=== PATIENT | female | born 1935 | race Caucasian/White ===

== ENCOUNTER 2017-08-12 11:00 | Outpatient (RCR) | payer MEDICARE, OTHER | END 2017-11-10 | disposition home or self-care (01) | LOC: ONC 11:00 | PROVIDERS: ATTEND Internal Medicine Hematology & Oncology | DX: Z08 Encounter for follow-up examination after completed treatment for malignant neoplasm (principal); Z85.3 Personal history of malignant neoplasm of breast; M81.0 Age-related osteoporosis without current pathological fracture; E03.9 Hypothyroidism, unspecified; M25.511 Pain in right shoulder; R13.10 Dysphagia, unspecified; Z92.3 Personal history of irradiation; Z79.899 Other long term (current) drug therapy | CPT/HCPCS: 99213 ==

== ENCOUNTER 2018-08-18 09:47 | Outpatient (RCR) | payer MEDICARE, OTHER | END 2018-11-16 | disposition home or self-care (01) | LOC: ONC 09:47 | PROVIDERS: ATTEND Internal Medicine Hematology & Oncology | DX: Z08 Encounter for follow-up examination after completed treatment for malignant neoplasm (principal); Z85.3 Personal history of malignant neoplasm of breast; M81.0 Age-related osteoporosis without current pathological fracture; E03.9 Hypothyroidism, unspecified; M25.511 Pain in right shoulder; R13.10 Dysphagia, unspecified; Z92.3 Personal history of irradiation; Z79.899 Other long term (current) drug therapy | CPT/HCPCS: 99213 ==

== ENCOUNTER → 2019-03-05 | Outpatient (CLI) | payer MEDICARE, OTHER ==
--- NOTE | 2019-03-05 17:52 | Diagnostic Imaging Report ---
EXAMINATION: Right knee, three views. INDICATION: Right knee pain and swelling. No known injury. COMPARISON: None available. FINDINGS: There is mild osteopenia of the visualized bones, more prominent in the tibia and fibula. There is suggestion of linear lucency through the lateral tibial plateau, which is best seen on the oblique view. Otherwise, no fracture or acute osseous abnormality is appreciated. Bony alignment is maintained. Tricompartmental degenerative change is noted, with joint space narrowing in the medial and lateral compartments, and marginal osteophyte formation in the patellofemoral, medial, and lateral compartments. No large joint effusion. Soft tissues are unremarkable. IMPRESSION: Suggestion of lucency involving the lateral tibial plateau, possibly reflecting fracture. This can be confirmed with CT scan, as clinically indicated. Left message with office to have nurse call (4:13 p.m. 03/05/2019/myriam) Dictated by: Dictated on workstation # [id number]
== END ==
LOC: RAD FS 15:03
PROVIDERS: ATTEND Family Medicine
DX: M25.461 Effusion, right knee (principal); M25.361 Other instability, right knee
CPT/HCPCS: 73562

== ENCOUNTER → 2019-03-10 | Outpatient (CLI) | payer MEDICARE, OTHER ==
--- NOTE | 2019-03-12 17:20 | Diagnostic Imaging Report ---
PROCEDURE: CT right lower extremity without contrast. TECHNIQUE: Axially acquired CT was obtained through the right lower extremity without intravenous contrast. Coronal and sagittal reformations were also performed. Auto Exposure Controls were utilized during the CT exam to meet ALARA standards for radiation dose reduction. INDICATION: Knee pain. Knee started giving out about 2 weeks ago. No prior surgeries. EXAMINATION: CT of the right lower extremity from 03/10/2019. COMPARISON: Correlation made to radiographs dated 03/05/2019. FINDINGS: There is a moderate sized joint effusion. There is also fluid in the posterior medial aspect of the knee likely due to a recent rupture of a Villa's cyst. There is osteopenia which does limit evaluation for nondisplaced fractures. Subchondral cysts are noted throughout the medial tibial plateau and more centrally along the tibia near the tibial eminences. These findings are consistent with degenerative disease. Spurring noted medially and laterally. No discrete fractures are appreciated but if pain persists, MRI recommended given the diffuse osteopenia. IMPRESSION: 1. Marked osteopenia. No discrete fracture lines appreciated but please see above discussion and recommendations. 2. Degenerative changes. 3. Joint effusion. Dictated by: Dictated on workstation # [id number]
== END ==
LOC: RAD FS 10:11
PROVIDERS: ATTEND Family Medicine
DX: M17.11 Unilateral primary osteoarthritis, right knee (principal); M85.88 Other specified disorders of bone density and structure, other site; M85.661 Other cyst of bone, right lower leg
CPT/HCPCS: 73700

== ENCOUNTER → 2019-08-17 | Outpatient (CLI) | payer MEDICARE, OTHER ==
[2019-08-17 10:22] LABS: BASOPHILS % (AUTO) 1 % (0-10); EOSINOPHILS # (AUTO) 0.1 10^3/uL (0.0-0.3); EOSINOPHILS % (AUTO) 1 % (0-10); HEMATOCRIT 44 % (35-52); HEMOGLOBIN 14.2 G/DL (11.5-16.0); LYMPHOCYTES # (AUTO) 1.3 X 10^3 (1.0-4.0); LYMPHOCYTES % (AUTO) 21 % (12-44); MEAN CORPUSCULAR HEMOGLOBIN 32 PG (25-34); MEAN CORPUSCULAR HGB CONC 33 G/DL (32-36); MEAN CORPUSCULAR VOLUME 98 FL (80-99); MEAN PLATELET VOLUME 10.3 FL (7.4-10.4); MONOCYTES # (AUTO) 0.4 X 10^3 (0.0-1.0); MONOCYTES % (AUTO) 6 % (0-12); NEUTROPHILS # (AUTO) 4.3 X 10^3 (1.8-7.8); NEUTROPHILS % (AUTO) 71 % (42-75); PLATELET COUNT 204 10^3/uL (130-400); RED CELL DISTRIBUTION WIDTH 12.7 % (10.0-14.5); WHITE BLOOD COUNT 6.1 10^3/uL (4.3-11.0)
[2019-08-17 10:40] LABS: ALANINE AMINOTRANSFERASE 11 U/L (0-55); ALBUMIN 4.1 GM/DL (3.2-4.5); ALKALINE PHOSPHATASE 61 U/L (40-136); BILIRUBIN,TOTAL 0.5 MG/DL (0.1-1.0); BUN/CREATININE RATIO 16; CARBON DIOXIDE 27 MMOL/L (21-32); CHLORIDE 105 MMOL/L (98-107); CREATININE SERUM 0.81 MG/DL (0.60-1.30); GFR ESTIMATED > 60; GLUCOSE 91 MG/DL (70-105); POTASSIUM 3.9 MMOL/L (3.6-5.0); SODIUM 138 MMOL/L (135-145); TOTAL PROTEIN 6.5 GM/DL (6.4-8.2)
== END ==
LOC: EDSTATUS 11-17 08:16 → ONC 10:12
PROVIDERS: ATTEND Internal Medicine Hematology & Oncology
DX: C50.912 Malignant neoplasm of unspecified site of left female breast (principal); M47.816 Spondylosis without myelopathy or radiculopathy, lumbar region; Z79.899 Other long term (current) drug therapy
CPT/HCPCS: 36415; 80053; 85025; 99213

== ENCOUNTER → 2020-04-07 | Outpatient (CLI) | payer MEDICARE, OTHER ==
[~2020-04-07] MED LIST: ALEN70TA5; CELE-63; CENTRUM; CETI10TA17; LEVO-129; LEVO50TA6; LOVA20TA2
--- NOTE | 2020-04-07 14:44 | Diagnostic Imaging Report ---
INDICATION: Low abdominal pain. EXAMINATION: Supine and upright views of the abdomen were obtained with single view of the chest. FINDINGS: There is air trapping in the lungs, bilaterally. There is no evidence of focal consolidation. Surgical clips are seen in the left axilla. Overall bowel gas pattern is unremarkable. There is no evidence of bowel obstruction. No free intraperitoneal gas or pneumatosis is identified. There has been bilateral hip replacement. Moderate lumbar spondylosis is noted. IMPRESSION: No acute abnormality. Dictated by: Dictated on workstation # [id number]
== END ==
LOC: RAD FS 14:22
PROVIDERS: ATTEND Family Medicine
DX: R10.84 Generalized abdominal pain (principal)
CPT/HCPCS: 74022

== ENCOUNTER 2020-04-09 11:15 | Emergency (ER) | payer MEDICARE, OTHER ==
[~2020-04-09] VITALS: Ht 170.1 cm; Wt 60.8 kg
--- NOTE | 2020-04-09 11:23 | NUR ---
Pt presents to ED accompanied by best friend with referral from [facility]. Friend with patient reports had been to the [facility] and they reported she will need labs and scanning that can not be performed there.
--- NOTE | 2020-04-09 11:37 | ED Abdominal Pain ---
General Chief Complaint: Abdominal/GI Problems Stated Complaint: ABD PAIN Source of Information: Patient Exam Limitations: No Limitations History of Present Illness Date Seen by Provider: Apr 09, 2020 Time Seen by Provider: 11:20 Initial Comments The patient is a pleasant 84-year-old female who presents for evaluation of lower middle abdominal discomfort she states is been present for the last 2 days. She denies that the pain is currently severe but says she knows that it is there. She was seen by her PCP 2 days ago and had a KUB performed which apparently suggested some constipation because she was prescribed MiraLAX. The patient states that she does not have a good memory and does not recall if she has been taking the MiraLAX. She denies any history of abdominal surgeries. She also denies fevers or chills, nausea or vomiting, diarrhea, urinary complaints, vaginal bleeding, chest pain or shortness of breath, dizziness or syncope. She is alert and oriented 4, calm, and appears to be in no distress at this time. Timing/Duration: 2-3 Days Severity/Quality: Moderate Location: Suprapubic Radiation: No Radiation Activities at Onset: None Associated Symptoms: Denies Symptoms Allergies and Home Medications Allergies Coded Allergies: Penicillins (Unverified Adverse Reaction, Unknown, 04/09/20) Sulfa (Sulfonamide Antibiotics) (Unverified Adverse Reaction, Unknown, 04/09/20) Patient Home Medication List Home Medication List Reviewed: Yes Review of Systems Review of Systems Constitutional: no symptoms reported EENTM: No Symptoms Reported Respiratory: No Symptoms Reported Cardiovascular: No Symptoms Reported Gastrointestinal: Abdominal Pain Genitourinary: No Symptoms Reported Musculoskeletal: no symptoms reported Skin: no symptoms reported Psychiatric/Neurological: No Symptoms Reported Endocrine: No Symptoms Reported Hematologic/Lymphatic: No Symptoms Reported All Other Systems Reviewed Negative Unless Noted: Yes Past Qxpsmuc-Nghhds-Okiepn Hx Past Med/Social Hx: Reviewed Nursing Past Med/Soc Hx Physical Exam Vital Signs Vital Signs - First Documented 04/09/20 11:23 Temp 36.3 Pulse 81 Resp 18 B/P (MAP) 157/79 (105) Pulse Ox 99 O2 Delivery Room Air Capillary Refill : Height/Weight/BMI Height: '" Weight: lbs. oz. kg; BMI Method: General Appearance: WD/WN, no apparent distress HEENT: PERRL/EOMI, normal ENT inspection Respiratory: lungs clear, normal breath sounds, no respiratory distress, no accessory muscle use Cardiovascular: regular rate, rhythm, no edema, no JVD Gastrointestinal: normal bowel sounds, soft, no organomegaly, no pulsatile mass, tenderness (mild suprapubic abdominal tenderness, otherwise benign abdominal examination, no guarding, soft, no rebound, no rigidity, no distention) Extremities: non-tender, normal inspection, no pedal edema, no calf tenderness Back: normal inspection, no CVA tenderness 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, no motor/sensory deficits, alert, normal mood/affect, oriented x 3 Skin: normal color, warm/dry Progress/Results/Core Measures Results/Orders Lab Results Laboratory Tests Test 04/09/20 11:29 04/09/20 11:35 Range/Units Urine Color PALE YELLOW Urine Clarity CLEAR Urine pH 6.0 5-9 Urine Specific Sullivan <=1.005 1.016-1.022 Urine Protein NEGATIVE NEGATIVE Urine Glucose (UA) NEGATIVE NEGATIVE Urine Ketones NEGATIVE NEGATIVE Urine Nitrite NEGATIVE NEGATIVE Urine Bilirubin NEGATIVE NEGATIVE Urine Urobilinogen 0.2 < = 1.0 MG/DL Urine Leukocyte Esterase NEGATIVE NEGATIVE Urine RBC (Auto) NEGATIVE NEGATIVE Urine RBC NONE /HPF Urine WBC RARE /HPF Urine Squamous Epithelial Cells 0-2 /HPF Urine Crystals NONE /LPF Urine Bacteria NEGATIVE /HPF Urine Casts NONE /LPF Urine Mucus NEGATIVE /LPF Urine Culture Indicated NO White Blood Count 9.0 4.3-11.0 10^3/uL Red Blood Count 4.36 4.35-5.85 10^6/uL Hemoglobin 14.1 11.5-16.0 G/DL Hematocrit 42 35-52 % Mean Corpuscular Volume 97 80-99 FL Mean Corpuscular Hemoglobin 32 25-34 PG Mean Corpuscular Hemoglobin Concent 33 32-36 G/DL Red Cell Distribution Width 11.8 10.0-14.5 % Platelet Count 216 130-400 10^3/uL Mean Platelet Volume 10.5 H 7.4-10.4 FL Neutrophils (%) (Auto) 74 42-75 % Lymphocytes (%) (Auto) 19 12-44 % Monocytes (%) (Auto) 5 0-12 % Eosinophils (%) (Auto) 1 0-10 % Basophils (%) (Auto) 1 0-10 % Neutrophils # (Auto) 6.7 1.8-7.8 X 10^3 Lymphocytes # (Auto) 1.7 1.0-4.0 X 10^3 Monocytes # (Auto) 0.5 0.0-1.0 X 10^3 Eosinophils # (Auto) 0.1 0.0-0.3 10^3/uL Basophils # (Auto) 0.1 0.0-0.1 10^3/uL Sodium Level 139 135-145 MMOL/L Potassium Level 4.4 3.6-5.0 MMOL/L Chloride Level 101 98-107 MMOL/L Carbon Dioxide Level 25 21-32 MMOL/L Anion Gap 13 5-14 MMOL/L Blood Urea Nitrogen 15 7-18 MG/DL Creatinine 0.81 0.60-1.30 MG/DL Estimat Glomerular Filtration Rate > 60 BUN/Creatinine Ratio 19 Glucose Level 101 70-105 MG/DL Calcium Level 9.5 8.5-10.1 MG/DL Corrected Calcium 9.4 8.5-10.1 MG/DL Total Bilirubin 0.5 0.1-1.0 MG/DL Aspartate Amino Transf (AST/SGOT) 27 5-34 U/L Alanine Aminotransferase (ALT/SGPT) 11 0-55 U/L Alkaline Phosphatase 73 40-136 U/L Total Protein 6.4 6.4-8.2 GM/DL Albumin 4.1 3.2-4.5 GM/DL Amylase Level 34 25-125 U/L Lipase 26 8-78 U/L My Orders Orders - EDWARD SWEENEY DO Amylase (04/09/20 11:19) Cbc With Automated Diff (04/09/20 11:19) Comprehensive Metabolic Panel (04/09/20 11:19) Lipase (04/09/20 11:19) Ua Culture If Indicated (04/09/20 11:19) Ed Iv/Invasive Line Start (04/09/20 11:19) Ct Abdomen/Pelvis W (04/09/20 11:32) Iohexol Injection (Omnipaque 350 Mg/Ml 1 (04/09/20 12:30) Received Contrast (Hold Metformin- Contr (04/09/20 12:30) Ns (Ivpb) (Sodium Chloride 0.9% Ivpb Bag (04/09/20 12:30) Sodium Chloride Flush (Catheter Flush Sy (04/09/20 12:30) Medications Given in ED Current Medications Medications Dose Ordered Sig/Tello Route Start Time Stop Time Status Last Admin Dose Admin Iohexol 100 ml ONCE ONCE IV 04/09/20 12:30 04/09/20 12:31 DC 04/09/20 12:31 100 ML Sodium Chloride 10 ml NEEDED PRN IV 04/09/20 12:30 04/09/20 12:31 10 ML Sodium Chloride 100 ml ONCE ONCE IV 04/09/20 12:30 04/09/20 12:31 DC 04/09/20 12:31 80 ML Vital Signs/I&O 04/09/20 11:23 Temp 36.3 Pulse 81 Resp 18 B/P (MAP) 157/79 (105) Pulse Ox 99 O2 Delivery Room Air Progress Progress Note : Progress Note @1325 - patient updated on lab and imaging results which are acutely unremarkable. She appears comfortable. Advised the patient to stop taking the MiraLAX as she is having somewhat loose stools and to follow-up with her doctor in the next 1-2 days. The patient expresses verbal understanding and agreement with the plan and is stable for discharge. Diagnostic Imaging Diagonstic Imaging: CT Comments [facility]. [place], [place] NAME: MIRI GROVES MED REC#: [id number] PT STATUS: REG ER : 1935 PHYSICIAN: EDWARD SWEENEY DO ADMIT DATE: 04/09/20/ER FS Signed Date of Exam:04/09/20 CT ABDOMEN/PELVIS W PROCEDURE: CT abdomen and pelvis with contrast. TECHNIQUE: Multiple contiguous axial images were obtained through the abdomen and pelvis after administration of intravenous contrast. Auto Exposure Controls were utilized during the CT exam to meet ALARA standards for radiation dose reduction. INDICATION: Abdominal pain for several days. Constipation. There is hepatic steatosis. There is a 3.5 cm cyst in the left lobe of the liver. The gallbladder and bile ducts are normal. The spleen, pancreas and adrenals are normal. The kidneys and ureters are normal. The bladder is predominantly obscured by artifact from the bilateral hip prostheses that are present. There is fecal material scattered throughout a nondilated colon. No acute abnormality of the colon is seen. The appendix is normal. The small bowel is normal. There is no free intraperitoneal air or fluid. There are degenerative changes of the spine with no acute bony abnormality. IMPRESSION: Hepatic steatosis. No acute abnormality is seen. Dictated by: Dictated on workstation # [id number] Dict: 04/09/20 1250 Trans: 04/09/20 1303 [facility] [id number] Interpreted by: EDWARD WYATT MD Electronically signed by: EDWARD WYATT MD 04/09/20 1302 Departure Impression Primary Impression: Abdominal pain Disposition: 01 HOME, SELF-CARE Condition: Stable Departure-Patient Inst. Decision time for Depature: 13:26 Referrals: SELFANGEL MD (PCP/Family) Primary Care Physician Patient Instructions: Acute Abdomen (Belly Pain), Adult (DC) Add. Discharge Instructions: Follow-up with your doctor in the next 1-2 days. Return to the emergency Department immediately for new or worsening symptoms. Stop taking the MiraLAX while having loose or soft stools as this may be contributing to your abdominal cramping discomfort. EDWARD SWEENEY DO Apr 09, 2020 11:37
--- NOTE | 2020-04-09 11:40 | NUR ---
Call to [facility] to request a report of the presentation of patient at their facility and any exam results. Provider reports they can not perform any further exams in their facility as no results today such as labs and concern for abd CT scanning. At this time the quality control director states that Dr Sullivan saw patient 04/07/20 and did KUB. The visit recommended pt to use Miralax and drink Gatorade also.
[2020-04-09 11:52] LABS: BACTERIA,URINE NEGATIVE /HPF; BILIRUBIN,URINE NEGATIVE (NEGATIVE); CLARITY,URINE CLEAR; COLOR,URINE PALE YELLOW; GLUCOSE, URINE (UA) NEGATIVE (NEGATIVE); KETONES,URINE NEGATIVE (NEGATIVE); LEUKOCYTE ESTERASE ,URINE NEGATIVE (NEGATIVE); NITRITE,URINE NEGATIVE (NEGATIVE); PROTEIN,URINE NEGATIVE (NEGATIVE); SQUAMOUS EPITHELIAL CELL,UR 0-2 /HPF; WBC,URINE RARE /HPF
[2020-04-09 11:57] LABS: HEMATOCRIT 42 % (35-52); HEMOGLOBIN 14.1 G/DL (11.5-16.0); MEAN CORPUSCULAR HEMOGLOBIN 32 PG (25-34); MEAN CORPUSCULAR HGB CONC 33 G/DL (32-36); MEAN CORPUSCULAR VOLUME 97 FL (80-99); PLATELET COUNT 216 10^3/uL (130-400); RED CELL DISTRIBUTION WIDTH 11.8 % (10.0-14.5)
[2020-04-09 11:58] LABS: BASOPHILS # (AUTO) 0.1 10^3/uL (0.0-0.1); BASOPHILS % (AUTO) 1 % (0-10); EOSINOPHILS # (AUTO) 0.1 10^3/uL (0.0-0.3); EOSINOPHILS % (AUTO) 1 % (0-10); LYMPHOCYTES # (AUTO) 1.7 X 10^3 (1.0-4.0); LYMPHOCYTES % (AUTO) 19 % (12-44); MEAN PLATELET VOLUME 10.5 FL (7.4-10.4); MONOCYTES # (AUTO) 0.5 X 10^3 (0.0-1.0); MONOCYTES % (AUTO) 5 % (0-12); NEUTROPHILS # (AUTO) 6.7 X 10^3 (1.8-7.8); NEUTROPHILS % (AUTO) 74 % (42-75)
[2020-04-09] MEDS ORDERED: CENTRUM (12:05)
[2020-04-09] MEDS ORDERED: LEVO-129 (12:05)
[2020-04-09] MEDS ORDERED: LOVA20TA2 (12:05)
[2020-04-09] MEDS ORDERED: CELE-63 (12:05)
[2020-04-09] MEDS ORDERED: ALEN70TA5 (12:05)
[2020-04-09] MEDS ORDERED: CETI10TA17 (12:05)
[2020-04-09] MEDS ORDERED: LEVO50TA6 (12:05)
[2020-04-09 12:13] LABS: BUN/CREATININE RATIO 19; CALCIUM 9.5 MG/DL (8.5-10.1); CARBON DIOXIDE 25 MMOL/L (21-32); CHLORIDE 101 MMOL/L (98-107); CREATININE SERUM 0.81 MG/DL (0.60-1.30); GFR ESTIMATED > 60; GLUCOSE 101 MG/DL (70-105); SODIUM 139 MMOL/L (135-145)
[2020-04-09 12:14] LABS: ALANINE AMINOTRANSFERASE 11 U/L (0-55); ALBUMIN 4.1 GM/DL (3.2-4.5); ALKALINE PHOSPHATASE 73 U/L (40-136); AMYLASE 34 U/L (25-125); BILIRUBIN,TOTAL 0.5 MG/DL (0.1-1.0); LIPASE 26 U/L (8-78); TOTAL PROTEIN 6.4 GM/DL (6.4-8.2)
[2020-04-09 12:15] LABS: POTASSIUM 4.4 MMOL/L (3.6-5.0)
[2020-04-09 12:30] VITALS: BP 147/66
[2020-04-09] MEDS ORDERED: CATHETER FLUSH 10 ML SYR IV PRN (12:30)
[2020-04-09] MEDS ORDERED: NS 100 ML (IVPB) BAG IV ONE (12:30)
[2020-04-09] MEDS ORDERED: IOHEXOL 350 MG/ML 100 ML (OMNIPAQUE 350) VIAL IV ONE (12:30)
[2020-04-09] MEDS ORDERED: HOLD METFORMIN - RECEIVED CONTRAST 20 ML VIAL IV SCH (12:30)
--- NOTE | 2020-04-09 12:55 | Diagnostic Imaging Report ---
PROCEDURE: CT abdomen and pelvis with contrast. TECHNIQUE: Multiple contiguous axial images were obtained through the abdomen and pelvis after administration of intravenous contrast. Auto Exposure Controls were utilized during the CT exam to meet ALARA standards for radiation dose reduction. INDICATION: Abdominal pain for several days. Constipation. There is hepatic steatosis. There is a 3.5 cm cyst in the left lobe of the liver. The gallbladder and bile ducts are normal. The spleen, pancreas and adrenals are normal. The kidneys and ureters are normal. The bladder is predominantly obscured by artifact from the bilateral hip prostheses that are present. There is fecal material scattered throughout a nondilated colon. No acute abnormality of the colon is seen. The appendix is normal. The small bowel is normal. There is no free intraperitoneal air or fluid. There are degenerative changes of the spine with no acute bony abnormality. IMPRESSION: Hepatic steatosis. No acute abnormality is seen. Dictated by: Dictated on workstation # [id number]
[2020-04-09 13:35] VITALS: BP 133/90
--- NOTE | 2020-04-09 13:35 | NUR ---
Pt discharged at this time after review of home instructions and verbalizing understanding. Pt has a friend Jane Vidhya Yin that also was a patient that sat to listen review of instructions r/t pt's poor comprehension r/t early dementia. All questions satified with answers. IV dc'd with small pressure dsg placed over site, hemostasis achieved. Pt ambulates with steady gait.
== END 2020-04-09 13:35 | disposition home or self-care (01) ==
LOC: EDUNIT# 11:15 → ER FS 11:17
DX: R10.30 Lower abdominal pain, unspecified (principal); Z88.2 Allergy status to sulfonamides; K76.0 Fatty (change of) liver, not elsewhere classified; Z79.890 Hormone replacement therapy; Z79.899 Other long term (current) drug therapy; Z88.0 Allergy status to penicillin; Z96.643 Presence of artificial hip joint, bilateral
CPT/HCPCS: 36415; 74177; 80053; 81000; 82150; 83690; 85025

== ENCOUNTER 2020-04-15 14:31 | Emergency (ER) | payer MEDICARE, OTHER ==
[~2020-04-15] VITALS: Ht 170.2 cm; Wt 60.8 kg
--- OUTSIDE RECORDS SUMMARY | 2020-04-15 14:37 | XMS REPORT ---
Author Author Rocio Petit Organization [facility] Address [address] [facility]. 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 595790362 Problem BCC (basal cell carcinoma), back C44.519 Active 066814062 Problem Solar urticaria L56.3 Active 1038 8136 ALLERGIES No Information ENCOUNTERS Encounter Location Date Diagnosis [facility] [id number] [place] [address] [phone] Jun, [facility] [address] [place] [address] [phone] Jan, Encounter for removal of sut ures Z48.02 [place] [id number] [facility] in [address] [phone] Jan, BCC (basal cell carcinoma), back C44.519 [facility] [address] [place], [place] [id number] Dec, [facility] [address] [place] [address] [id number] Dec, Benign neoplasm of skin of t runk, except scrotum D23.5 ; Personal history of other malignant neoplasm of skin Z85.828 ; Encounter for screening for malignant neoplasm of skin Z12.83 ; Actinic keratosis L57.0 ; Neoplasm of uncertain behavior of skin D48.5 ; Seborrheic keratoses L82.1 and Lentigo L81.4 [facility] [address] [place] [address] [id number] May, Squamous cell carcinoma in s itu of skin of left forearm D04.62 [facility] [address] in [facility] [place] [id number] Apr, [facility] [address] in [facility] [address] [place], [place] [id number] Apr, [facility] [address] in [facility] [address] [place] [phone] Apr, Squamous cell carcinoma in s itu of skin of left forearm D04.62 [facility] [address] in [facility] [place], [place] [id number] Mar, [facility] [address] in [facility] [place], [place] [phone] Mar, Solar urticaria L56.3 and 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 IMMUNIZATIONS No Known Immunizations SOCIAL HISTORY Never Assessed REASON FOR VISIT 2wk stitch removal PLAN OF CARE VITAL SIGNS MEDICATIONS Medication Instructions Dosage Frequency Start Date End Date Duration S tatus Levothyroxine Sodium Act rachell Calcium Active Doxycycline Hyclate 100 MG Orally Twice a day 1 capsule 12h 19 J 2017 7 days Active Celebrex Active Alendronate Sodium Activ e Fluorouracil 5 % Externally apply along suture line on fo rearm daily for 3 wks 1 application to affected area Apr, 21 days Active Lovastatin Active ZyrTEC Active RESULTS No Results PROCEDURES No Known procedures INSTRUCTIONS MEDICATIONS ADMINISTERED No Known Medications MEDICAL (GENERAL) HISTORY Type Description Date Medical History Breast Cancer Medical History Rheumatic Fever Medical History MRSA Medical History SCC Medical History BCC Surgical History Lumpectomy Surgical History Tonsilectomy Surgical History Cataract SUrgery Surgical History Macular Hole Surgical History Arthroscopy on lt knee Surgical History Both hips replaced Surgical History Exc of a BCC 01/14/2019
--- OUTSIDE RECORDS SUMMARY | 2020-04-15 14:37 | XMS REPORT ---
Author Author Rocio Petit Organization [facility] Address [address] [facility]. 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 773573218 Problem BCC (basal cell carcinoma), back C44.519 Active 901946057 Problem Solar urticaria L56.3 Active 1039 3956 ALLERGIES No Known Allergies ENCOUNTERS Encounter Location Date Diagnosis [facility] [address] [facility] in [address] [phone] Jun, [facility] [address] [facility] in [facility] [address] [place] [phone] Jan, Encounter for removal of sut ures Z48.02 [facility] [address] [facility] in [facility] [address] [place] [id number] Jan, BCC (basal cell carcinoma), back C44.519 [facility] [address] [facility] in [address] [phone] Jan, [facility] [address] [place], [place] [id number] Dec, [facility] [address] [facility] in [address] [id number] Dec, Benign neoplasm of skin of t runk, except scrotum D23.5 ; Personal history of other malignant neoplasm of skin Z85.828 ; Encounter for screening for malignant neoplasm of skin Z12.83 ; Actinic keratosis L57.0 ; Neoplasm of uncertain behavior of skin D48.5 ; Seborrheic keratoses L82.1 and Lentigo L81.4 [facility] [address] in [facility] [place], [place] [phone] Dec, [facility] [address] in [facility] [place], [place] [id number] May, Squamous cell carcinoma in s itu of skin of left forearm D04.62 [facility] [address] in [facility] [place], [place] [id number] Apr, [facility] [address] in [facility] [place], [place] [id number] Apr, [facility] [address] in [facility] [place], [place] [id number] Apr, Squamous cell carcinoma in s itu of skin of left forearm D04.62 [facility] [address] [id number] Mar, [facility] [address] in [address] [id number] Mar, Solar urticaria L56.3 and 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 IMMUNIZATIONS No Known Immunizations SOCIAL HISTORY Never Assessed REASON FOR VISIT Left mid back; Superficial multifocal basal cell carcinoma, transected PLAN OF CARE Activity Details Follow Up 10 d Reason: VITAL SIGNS Height 5 ft 6 in in 2019-01-14 Weight 140 lbs 2019-01-14 BMI 22.59 kg/m2 2019-01-14 MEDICATIONS Medication Instructions Dosage Frequency Start Date End Date Duration S tatus Doxycycline Hyclate 100 MG Orally Twice a day 1 capsule 12h 19 J 2017 7 days Active ZyrTEC Active Lovastatin Active Celebrex Active Alendronate Sodium Activ e Fluorouracil 5 % Externally apply along suture line on fo rearm daily for 3 wks 1 application to affected area Apr, 21 days Active Levothyroxine Sodium Act rachell Calcium Active RESULTS Name Result Date Reference Range Surgical to [facility] Pathology 2019-01-14 Pathologist: See Report PROCEDURES Procedure Date Ordered Result Body Site EXC MLGNT TRUNK/ARMS/LEGS DANE 1.1-2 CM January 14, 2019 REPAIR SCALP/AXILLA/TRUNK/ARMS/LEGS 2.6-7.5CM January 14, 2019 INSTRUCTIONS MEDICATIONS ADMINISTERED No Known Medications MEDICAL [...]
--- OUTSIDE RECORDS SUMMARY | 2020-04-15 14:37 | XMS REPORT ---
Author Author Rocio Petit Organization [facility] Address 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 773460408 Problem BCC (basal cell carcinoma), back C44.519 Active 928858827 Problem Solar urticaria L56.3 Active 0033 6056 ALLERGIES No Known Allergies ENCOUNTERS Encounter Location Date Diagnosis [facility] [address] [place] [address] in [place] [phone] Jun, [facility] [address] [facility] in [facility] [address] [place] [address] Dec, Seborrheic keratoses L82.1 ; Personal history of other malignant neoplasm of skin Z85.828 ; Encounter for screening for malignant neoplasm of skin Z12.83 ; Actinic keratosis L57.0 ; Benign neoplasm of skin of trunk, except scrotum D23.5 and Lentigo L81.4 [facility] [address] [facility] in [address] [address] Jun, Benign neoplasm of skin of t runk, except scrotum D23.5 ; Personal history of other malignant neoplasm of skin Z85.828 ; Encounter for screening for malignant neoplasm of skin Z12.83 ; Actinic keratosis L57.0 ; Neoplasm of uncertain behavior of skin D48.5 ; Seborrheic keratoses L82.1 and Lentigo L81.4 [facility] [address] [place] [address] [address] Jun, [facility] [address] in [address] [address] Jan, Encounter for removal of sut ures Z48.02 [facility] [address] [address] Jan, BCC (basal cell carcinoma), back C44.519 [facility] [address] in [address] [address] Jan, [facility] [place] [facility] [address] [facility] [place] [place] [address] Dec, [facility] [address] in [address] [address] Dec, Benign neoplasm of skin of t runk, except scrotum D23.5 ; Personal history of other malignant neoplasm of skin Z85.828 ; Encounter for screening for malignant neoplasm of skin Z12.83 ; Actinic keratosis L57.0 ; Neoplasm of uncertain behavior of skin D48.5 ; Seborrheic keratoses L82.1 and Lentigo L81.4 [facility] [address] in [address] [address] Dec, [facility] [address] in [address] [address] May, Squamous cell carcinoma in s itu of skin of left forearm D04.62 [facility] [address] [address] Apr, [facility] [address] in [address] [address] Apr, [facility] [address] [address] Apr, Squamous cell carcinoma in s itu of skin of left forearm D04.62 [facility] [address] [address] Mar, [facility] [address] in [facility] [address] [place] [address] 18 Mar, 2018 Solar urticaria L56.3 and 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 IMMUNIZATIONS No Known Immunizations SOCIAL HISTORY Never Assessed REASON FOR VISIT 6 month check PLAN OF CARE Activity Details Follow Up 6 Months Reason: VITAL SIGNS Heart Rate 77 /min 2019-12-20 Height 5 ft 6 in in 2019-12-20 Weight 140 lbs 2019-12-20 BMI 22.59 kg/m2 2019-12-20 Blood pressure systolic 102 mm Hg 2019-12-20 Blood pressure diastolic 60 mm Hg 2019-12-20 MEDICATIONS Medication Instructions Dosage Frequency Start Date End Date Duration S tatus Celebrex Active Calcium Active Lovastatin Active Doxycycline Hyclate 100 MG Orally Twice a day 1 capsule 12h 19 2017 7 days Active Alendronate Sodium Activ e Fluorouracil 5 % Externally apply along suture line on fo rearm daily for 3 wks 1 application to affected area Apr, 21 days Active Levothyroxine Sodium Act rachell ZyrTEC Active RESULTS No Results PROCEDURES Procedure Date Ordered Result Body Site DESTROY LESIONS 2 - 14 EACH December 20, 2019 DESTROY BENIGN/PREMAL LESION December 20, 2019 INSTRUCTIONS MEDICATIONS ADMINISTERED No Known Medications [...]
--- OUTSIDE RECORDS SUMMARY | 2020-04-15 14:37 | XMS REPORT ---
Author Author Rocio Petit Organization [facility] Address [address] 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 468711579 Problem BCC (basal cell carcinoma), back C44.519 Active 714794791 Problem Solar urticaria L56.3 Active 0555 6006 ALLERGIES No Information ENCOUNTERS Encounter Location Date Diagnosis [facility] [address] [facility] in [address] [phone] Jun, [facility] [address] [facility] in [facility] [address] [place] [phone] Jan, Encounter for removal of sut ures Z48.02 [facility] [address] [facility] in [facility] [address] [place] [phone] Jan, BCC (basal cell carcinoma), back C44.519 [facility] [address] [facility] in [address] [phone] Jan, [facility] [address] [place], [place] [phone] Dec, [facility] [address] [facility] in [address] [phone] Dec, Benign neoplasm of skin of t runk, except scrotum D23.5 ; Personal history of other malignant neoplasm of skin Z85.828 ; Encounter for screening for malignant neoplasm of skin Z12.83 ; Actinic keratosis L57.0 ; Neoplasm of uncertain behavior of skin D48.5 ; Seborrheic keratoses L82.1 and Lentigo L81.4 [facility] [address] in [facility] [address] [place] [phone] Dec, [facility] [address] in [address] [phone] May, Squamous cell carcinoma in s itu of skin of left forearm D04.62 [facility] [address] in [facility] [place] [phone] Apr, [facility] [address] in [facility] [place] [phone] Apr, [facility] [address] in [facility] [place] [phone] Apr, Squamous cell carcinoma in s itu of skin of left forearm D04.62 [facility] [address] in [address] [id number] Mar, [facility] [address] in [address] [id number] Mar, Solar urticaria L56.3 and 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 IMMUNIZATIONS No Known Immunizations SOCIAL HISTORY Never Assessed REASON FOR VISIT mips-biopsy PLAN OF CARE VITAL SIGNS MEDICATIONS Unknown Medications RESULTS No Results PROCEDURES No Known procedures [...]
--- OUTSIDE RECORDS SUMMARY | 2020-04-15 14:37 | XMS REPORT ---
Author Author Rocio Petit Organization [facility] Address [address] [facility]. 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 615058147 Problem BCC (basal cell carcinoma), back C44.519 Active 140318080 Problem Solar urticaria L56.3 Active 2218 8719 ALLERGIES No Information ENCOUNTERS Encounter Location Date Diagnosis [facility] [address] [facility] in [address] [phone] Jun, [facility] [address] [facility] in [facility] [address] [place], [place] [phone] Jan, Encounter for removal of sut ures Z48.02 [facility] [address] [facility] in [facility] [address] [place] [phone] Jan, BCC (basal cell carcinoma), back C44.519 [facility] [address] [facility] in [address] [phone] Jan, [facility] [address] [place], [place] [phone] Dec, [facility] [address] [facility] in [address] [phone] Dec, Benign neoplasm of skin of t runk, except scrotum D23.5 ; Personal history of other malignant neoplasm of skin Z85.828 ; Encounter for screening for malignant neoplasm of skin Z12.83 ; Actinic keratosis L57.0 ; Neoplasm of uncertain behavior of skin D48.5 ; Seborrheic keratoses L82.1 and Lentigo L81.4 [facility] [address] in [facility] [address] [place] [phone] Dec, [facility] [address] [phone] May, Squamous cell carcinoma in s itu of skin of left forearm D04.62 [facility] [address] in [facility] [place] [id number] Apr, [facility] [address] in [facility] [place] [id number] Apr, [facility] [address] in [facility] [place] [phone] Apr, Squamous cell carcinoma in s itu of skin of left forearm D04.62 [facility] [address] [id number] Mar, [facility] [address] [id number] Mar, Solar urticaria L56.3 and Ne oplasm [...]
--- OUTSIDE RECORDS SUMMARY | 2020-04-15 14:37 | XMS REPORT ---
Author Author Rocio Petit Organization [facility] Address 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 637059232 Problem BCC (basal cell carcinoma), back C44.519 Active 565288916 Problem Solar urticaria L56.3 Active 5697 8826 ALLERGIES No Information ENCOUNTERS Encounter Location Date Diagnosis [facility] [address] [facility] in [place] [phone] Dec, [facility] [address] [facility] in [address] [address] 16 Jun, 2019 Benign neoplasm of skin of t runk, except scrotum D23.5 ; Personal history of other malignant neoplasm of skin Z85.828 ; Encounter for screening for malignant neoplasm of skin Z12.83 ; Actinic keratosis L57.0 ; Neoplasm of uncertain behavior of skin D48.5 ; Seborrheic keratoses L82.1 and Lentigo L81.4 [facility] [address] [facility] in [address] [address] Jun, [place] [address] [facility] [place] [address] Jan, Encounter for removal of sut ures Z48.02 [facility] [address] [facility] in [address] [address] Jan, BCC (basal cell carcinoma), back C44.519 [facility] [address] [facility] [place] [place] [address] Jan, [facility] [address] [facility] [place] [address] Dec, [facility] [address] [place] [address] Dec, Benign neoplasm of skin of t runk, except scrotum D23.5 ; Personal history of other malignant neoplasm of skin Z85.828 ; Encounter for screening for malignant neoplasm of skin Z12.83 ; Actinic keratosis L57.0 ; Neoplasm of uncertain behavior of skin D48.5 ; Seborrheic keratoses L82.1 and Lentigo L81.4 [facility] [address] in [place] [address] Dec, [facility] [address] [place] [address] May, Squamous cell carcinoma in s itu of skin of left forearm D04.62 [facility] [address] [place] [address] Apr, [facility] [address] [place] [address] Apr, [facility] [address] [place] [address] Apr, Squamous cell carcinoma in s itu of skin of left forearm D04.62 [facility] [address] in [place] [phone] Mar, [facility] [address] in [address] [address] Mar, Solar urticaria L56.3 and Ne oplasm [...]
--- OUTSIDE RECORDS SUMMARY | 2020-04-15 14:37 | XMS REPORT ---
Author Author Rocio Petit Organization [facility] Address [address] [facility] 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 188076771 Problem BCC (basal cell carcinoma), back C44.519 Active 346090361 Problem Solar urticaria L56.3 Active 1807 7006 ALLERGIES No Known Allergies ENCOUNTERS Encounter Location Date Diagnosis [facility] [address] [facility] in [address] [id number] Dec, [facility] [address] [facility] in [address] [phone] Jun, Benign neoplasm of skin of t runk, except scrotum D23.5 ; Personal history of other malignant neoplasm of skin Z85.828 ; Encounter for screening for malignant neoplasm of skin Z12.83 ; Actinic keratosis L57.0 ; Neoplasm of uncertain behavior of skin D48.5 ; Seborrheic keratoses L82.1 and Lentigo L81.4 [facility] [address] [facility] in [address] [id number] Jan, Encounter for removal of sut ures Z48.02 [facility] [address] [facility] in [address] [id number] Jan, BCC (basal cell carcinoma), back C44.519 [facility] [address] [facility] in [address] [id number] Jan, [facility] [address] [place], [place] [id number] Dec, [facility] [address] in [address] [id number] Dec, Benign neoplasm of skin of t runk, except scrotum D23.5 ; Personal history of other malignant neoplasm of skin Z85.828 ; Encounter for screening for malignant neoplasm of skin Z12.83 ; Actinic keratosis L57.0 ; Neoplasm of uncertain behavior of skin D48.5 ; Seborrheic keratoses L82.1 and Lentigo L81.4 [facility] [address] in [address] [id number] Dec, [facility] [address] [id number] May, Squamous cell carcinoma in s itu of skin of left forearm D04.62 [facility] [address] [id number] Apr, [facility] [address] [id number] Apr, [facility] [address] [id number] Apr, Squamous cell carcinoma in s itu of skin of left forearm D04.62 [facility] [address] [id number] Mar, [facility] [address] in [address] [id number] Mar, Solar urticaria L56.3 and 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 IMMUNIZATIONS No Known Immunizations SOCIAL HISTORY Never Assessed REASON FOR VISIT 6 mo f/u PLAN OF CARE Activity Details Follow Up 6 Months Reason: Pending Test Surgical to [facility] Pathology VITAL SIGNS Heart Rate 80 /min 2019-06-21 Height 5 ft 6 in in 2019-06-21 Weight 140 lbs 2019-06-21 BMI 22.59 kg/m2 2019-06-21 Blood pressure systolic 110 mm Hg 2019-06-21 Blood pressure diastolic 66 mm Hg 2019-06-21 MEDICATIONS Medication Instructions Dosage Frequency Start Date End Date Duration S tatus Doxycycline Hyclate 100 MG Orally Twice a day 1 capsule 12h 19 J 2017 7 days Active Lovastatin Active Celebrex Active Levothyroxine Sodium Act rachell ZyrTEC Active Calcium Active Fluorouracil 5 % Externally apply along suture line on fo rearm daily for 3 wks 1 application to affected area Apr, 21 days Active Alendronate Sodium Activ e RESULTS No Results PROCEDURES Procedure Date Ordered Result Body Site TANGNTL BX SKIN SINGLE LES Jun 21, 2019 DESTROY LESIONS 2 - 14 EACH Jun 21, 2019 DESTROY BENIGN/PREMAL LESION Jun 21, 2019 INSTRUCTIONS MEDICATIONS ADMINISTERED No Known Medications [...]
--- OUTSIDE RECORDS SUMMARY | 2020-04-15 14:37 | XMS REPORT ---
Author Author [facility] [place] [facility] Address [address] [address] Care Team Providers Care Access Services Assistant Name Role Phone MIHAELA ESTRADA Unavailable Damaso, Lino Unavailable Damaso, Lino Unavailable Damaso, Lino Unavailable Damaso, Lino Unavailable Damaso, Lino Unavailable Damaso, Lino Unavailable MIHAELA ESTRADA PCP Damaso, Lino Unavailable Damaso, Lino Unavailable Damaso, Lino Unavailable Damaso, Lino Unavailable Damaso, Lino Unavailable Damaso, Lino Unavailable SELFANGEL Unavailable Unavailable SELF ANGEL WARREN Unavailable Unavailable SELFANGEL Unavailable Damaso, Lino Unavailable MICHELET PILLAI Unavailable Unavailable Damaso, Lino Unavailable SELF, ANGEL Unavailable Unavailable Unavailable JOE Vera Unavailable Damaso, Lino Unavailable EDWARD SWEENEY DO Unavailable Unavailable Unavailable Unavailable Unavailable Unavailable Unavailable Unavailable Unavailable Unavailable Allergies Allergy Reported Allergen(s) Allergy Type Date of Reaction(s) Care Facility Classificati Onset Provider on penicillAMIN penicillAMINE ; Drug Allergy 12-30-2018 Unknown [facility] Translations: [employer] (1 source) [Penicillamine] Other Phone: Center [phone] ([id number]) Penicillins Penicillins Drug Allergy 04-09-2020 EDWARD SWEENEY V Via (antibiotic) DO [facility] (1 source) [facility] ([id number]) Sulfonamides Sulfamethoxazole ; Drug Allergy 12-30-2018 Unknown [facility] (antibiotic) Translations: [employer] (2 sources) [Sulfamethoxazole] Other Phone: Center o f [phone] ([address]) Encounters Encounter Date Encounter Type Encounter Diagnosis Care Provider Facility Start: Patient encounter EDWARD SWEENEY DO [facility] Via Nesha 04-09-2020 [facility] Start: Patient encounter ANGEL DE LEON MD [facility] Via risti 04-07-2020 [facility] Start: [facility] Start: Patient encounter Other seborrheic Lino Damaso German 12-20-2019 procedure keratosis Dermatology Start: Patient encounter ANGEL J SELF [facility] 11-25-2019 procedure [facility] Start: Telephone encounter ANGEL SELF [facility] 10-11-2019 MAIN Start: Patient encounter Encounter for general ANGEL MAGALY F [facility] 09-09-2019 procedure adult medical MAIN examination without abnormal findings Start: Consultation for Hyperlipidemia, ANGEL SELF [facility] 09-07-2019 laboratory medicine unspecified MAIN Start: Patient encounter NA NA [facility] 09-07-2019 procedure [facility] ([id number]) Start: Patient encounter MICHELET PILLAI MD [facility] Via [facility] 08-17-2019 [facility] Start: Patient encounter NA NA [facility] 08-06-2019 procedure [facility] ([id number]) Start: Telephone encounter ANGEL SELF [facility] 07-27-2019 MAIN Start: Patient encounter ANGEL SELF [facility] 07-19-2019 procedure [facility] (33131) Start: Patient encounter NA NA [facility] 07-19-2019 procedure [facility] (32744) Start: [facility] Dizziness and ANGEL SELF [facility] 07-19-2019 MAIN giddiness MAIN Start: Telephone encounter Dizziness and ANGEL SELF [facility] 07-09-2019 giddiness MAIN Start: Telephone encounter MARGARET MACIAS [facility] 07-01-2019 MAIN Start: [facility] Acute frontal MARGARET MACIAS [facility] 06-23-2019 MAIN sinusitis, MAIN unspecified Start: Patient encounter ANGEL SELF [facility] 06-23-2019 procedure Center [facility] (32952) Start: Patient encounter Other benign neoplasm Lino Tadeo on [facility] [place] 06-21-2019 procedure of skin of trunk Dermatology End: 06-21-2019 Start: Telephone encounter Lino Damaso [facility] [place] 06-21-2019 Dermatology End: 06-21-2019 Start: Telephone encounter ANGEL SELF [facility] 04-16-2019 MAIN End: 04-16-2019 Start: Telephone encounter ANGEL SELF [facility] 04-15-2019 MAIN End: 04-15-2019 Start: Telephone encounter Dizziness and ANGEL SELF [facility] 04-01-2019 giddiness MAIN End: 04-01-2019 Start: [facility] Hyperlipidemia, ANGEL SELF [facility] 03-10-2019 MAIN unspecified MAIN End: 03-10-2019 Start: Patient encounter ANGEL SELF VC Via risti 03-10-2019 procedure [facility] ([id number]) Start: Patient encounter ANGEL SELF [facility] Via risti 03-10-2019 procedure [facility] Start: Telephone encounter ANGEL SELF [facility] 03-08-2019 MAIN End: 03-08-2019 Start: Patient encounter NA NA [facility] 03-08-2019 procedure Center [facility] (21656) Start: Patient encounter ANGEL SELF [facility] 03-05-2019 procedure Center [facility] ([id number]) Start: HARLEY GODINEZ Other instability, ANGEL SELF [facility] 03-05-2019 MAIN right knee MAIN End: 03-05-2019 Start: Telephone encounter ANGEL SELF [facility] 03-05-2019 MAIN End: 03-05-2019 Start: Patient encounter ANGEL SELF [facility] Via risti 03-05-2019 procedure [facility] Start: Consultation for Hypothyroidism, ANGEL SELF [facility] 03-04-2019 laboratory medicine unspecified MAIN End: 03-04-2019 Start: Patient encounter NA NA [facility] 03-04-2019 procedure Center [facility] ([id number]) Start: Patient encounter NA NA [facility] 03-04-2019 procedure Center [facility] (09387) Start: Patient encounter ANGEL SELF [facility] 02-12-2019 procedure Center [facility] ([id number]) Start: [facility] Dizziness and ANGEL SELF [facility] 02-12-2019 MAIN giddiness MAIN End: 02-12-2019 Start: [facility] Leanne Encounter for removal Lino Petit [facility] [place] 01-28-2019 [facility] Dermatology End: 01-28-2019 Start: Patient encounter NA [facility] 01-14-2019 [place] ([id number]) Start: Admission to same day Basal cell carcinoma Lino Morejon akila [facility] [place] 01-14-2019 surgery center of skin of other part Dermato logy of trunk End: 01-14-2019 Start: Telephone encounter Linovalentina Petit [facility] [place] 01-14-2019 Dermatology End: 01-14-2019 Start: Telephone encounter ANGEL SELF [facility] 01-07-2019 MAIN End: 01-07-2019 Start: Telephone encounter ANGEL SELF [facility] 01-06-2019 MAIN End: 01-06-2019 Start: Telephone encounter Lino Damaso [facility] Cory ee 12-31-2018 Dermatology End: 12-31-2018 Start: Patient encounter ANGEL SELF [facility] 12-30-2018 procedure Center [facility] ([id number]) Start: [facility] Acute frontal JOE ZABHIJIT [facility] 12-30-2018 MAIN sinusitis, MAIN unspecified End: 12-30-2018 Start: Telephone encounter Hypothyroidism, ANGEL SELF [facility] [place] 12-30-2018 unspecified MAIN End: 12-30-2018 Start: Telephone encounter ANGEL SELF [facility] 12-21-2018 MAIN End: 12-21-2018 Start: Telephone encounter ANGEL SELF [facility] 12-16-2018 MAIN End: 12-16-2018 Start: Patient encounter Other benign neoplasm Lino Tadeo on [facility] [place] 12-14-2018 procedure of skin of trunk Dermatology End: 12-14-2018 Start: Telephone encounter Lino Petit [facility] [place] 12-14-2018 Dermatology End: 12-14-2018 Start: Patient encounter ANGEL SELF [facility] procedure Center [facility] ([id number]) Start: [facility] Dizziness and EUFEMIA CELESTINO [facility] 12-01-2018 MAIN giddiness MAIN End: 12-01-2018 Start: Telephone encounter ANGEL SELF [facility] 11-30-2018 MAIN End: 11-30-2018 Start: Patient encounter OUTSIDE [facility] 11-24-2018 procedure Center [facility] ([id number]) Start: Patient encounter MICHELET PILLAI [facility] Via [facility] 11-17-2018 procedure [facility] ([id number]) Start: Patient encounter MICHELET PILLAI Not Availab le ([id number]) 11-17-2018 procedure Start: Discharged Recurring MICHELET Zavala n Via [facility] 08-18-2018 Work Phone: [facility] ([id number]) End: 11-17-2018 Start: Patient encounter MICHELET PILLAI Not Availab le ([id number]) 08-18-2018 procedure End: 11-16-2018 Start: Patient encounter MICHELET PILLAI MD [facility] Via [facility] 08-18-2018 procedure [facility] End: 11-15-2018 Start: Patient encounter 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 Dermatolog y limb, including End: shoulder 06-04-2018 Start: Telephone encounter Lino Petit [facility] [place] 05-04-2018 Dermatology End: 05-04-2018 Start: Patient encounter NA NA Not Availab le ([id number]) 04-23-2018 procedure Start: Admission to same day Carcinoma in situ of Lino And erson [facility] [place] 04-23-2018 surgery center skin of left upper Dermatolog y limb, including End: shoulder 04-23-2018 Start: [facility] encounter NA [facility] 04-01-2018 procedure [facility] ([id number]) Start: Patient encounter NA NA Not Availab le ([id number]) 03-23-2018 procedure Start: Patient encounter MICHELET PILLAI Not Availab le ([id number]) 11-11-2017 procedure Start: Patient encounter MICHELET PILLAI MD [facility] Via [facility] 08-12-2017 [facility] End: 11-10-2017 Start: Patient encounter NA NA [facility] 08-06-2017 procedure [facility] ([id number]) Start: Patient encounter MICHELET PILLAI MD [facility] Via [facility] 08-06-2016 [facility] Start: Patient encounter MICHELET PILLAI MD [facility] Via [facility] 08-08-2015 [facility] Start: Patient encounter MICHELET PILLAI [facility] 09-06-2014 [facility] ([id number]) Start: Patient encounter MICHELET PILLAI [facility] is 03-29-2014 [facility] ([id number]) Encounter for general [facility] adult medical Other Phone: [facility] examination without [place] ([id number]) abnormal findings Medical Equipment No Information Goals No Information Immunizations Immunizatio Immunization Notes Care Provider Facility n Date 08-06-2019 influenza, high dose NA formerly [facility] seasonal, [facility] - preservative-free [facility] ([id number]) 03-02-2015 pneumococcal NA [facility] polysaccharide [facility] - vaccine, 23 valent [facility] ([id number]) 10-06-2012 pneumococcal conjugate NA [facility] vaccine, 13 valent [facility] ([id number]) Interventions No Information Medications Medication Drug Dates Sig Sig (Original) Class(es) (Normalized) amoxicillin 875 mg oral Penicillin take 1 tablet Amoxic illin 875 MG Orally every 12 hrs 1 tablet -class by mouth every tablet 12h 10 d ay(s) Active (1 source) Antibacter twelve hours ial benzonatate 100 mg oral Non-narcot Start: take 1 capsule Tessalon Perles 100 MG Orally Three capsule ic 12-30-2018 by mouth three times a day , prn cough 1 capsule as (1 source) Antitussiv times daily as needed Dec, 7 days Active e needed for cough Centrum Centrum Active (1 source) doxycycline hyclate 100 Tetracycli Start: take 1 capsule Doxycycline Hyclate 100 MG Orally Twice mg oral capsule ne-class 04-23-2018 by mouth twice a day 1 capsule 12h Apr, 7 days (7 sources) Drug daily Active fluorouracil 50 mg/ml Nucleoside Start: Fluorour acil 5 % Externally apply along topical cream Metabolic 05-04-2018 suture line on forearm daily for 3 wks 1 (7 sources) Inhibitor application to affe cted area Apr, 21 days Active Payers Date Payer Normalized Payer [id number] Plan of Treatment Date Care Activity Detail Author Start: Patient encounter procedure [facility] D[facility] 06-26-2020 [facility] 03-15-2020 Start: Patient encounter procedure [facility] Dermat [facility]logy [facility] 12-20-2019 Start: [facility] 11-25-2019 [facility] 09-09-2019 Start: Patient encounter procedure [facility] Dermat [facility]logy [facility] 06-21-2019 Start: [facility] D[facility] Dermat[facility] 01-28-2019 Start: Admission to same day [facility] Derm[facility] D[facility] 01-14-2019 surgery center Start: Patient encounter procedure [facility] Dermat [facility]logy [facility] 12-07-2018 Problems Active Problems Problem Problem Date Last Documented Episodic/Chr Provider Classificati Recorded Date onic on Abdominal Lower abdominal pain, unspecified 04-14-2020 Episo dic EDWARD PATEL pain DO (2 sources) Cancer of Malignant neoplasm of breast 04-07-2020 Chronic MICHELET PILLAI breast (female), unspecified ; Translations: [Malignant neoplasm (5 sources) of unspecified site of left female breast] Cancer of Personal history of malignant 04-07-2020 Episodic BOBAN ROSAS breast neoplasm of breast (21 sources) Disorders of Mixed hyperlipidemia ; Chronic MAXWE LL SELF lipid Translations: [Hyperlipidemia, Othe r Phone: metabolism unspecified] [phone] (19 sources) 0 Menopausal Hormone replacement therapy 04-14-2020 Episodic EDWARD PATEL disorders DO (1 source) Osteoarthrit Unilateral primary osteoarthritis, 04-07-2020 Chr onic ANGEL SELF is right knee ; Translations: (11 sources) [Osteoarthritis] Osteoporosis Age-related osteoporosis without 04-07-2020 Chron ic MICHELET PILLAI (21 sources) current pathological fractu re ; Translations: [Primary osteoporosis] Other Encounter for follow-up examination 04-07-2020 Epi johnnie PILLAI aftercare after completed treatment f or (21 sources) malignant neoplasm Other Other director long term care (current) drug 04-07-2020 Episodic MICHELET PILLAI aftercare therapy (20 sources) Other bone Other cyst of bone, right lower leg 04-07-2020 Epi sodic ANGEL SELF disease and MD musculoskele delbert deformities (5 sources) Other bone Other specified disorders of bone 04-07-2020 Episo dic ANGEL SELF disease and density and structure, other site M D musculoskele delbert deformities (5 sources) Other Presence of artificial hip joint, 04-14-2020 Chron ic EDWARD SWEENEY connective bilateral DO tissue disease (1 source) Other Dysphagia, unspecified 04-07-2020 Episodi c gastrointest inal disorders (19 sources) Other liver Fatty (change of) liver, not 04-14-2020 Chronic EDWARD SWEENEY diseases elsewhere classified DO (1 source) Other Pain in right shoulder 04-07-2020 Episodi c non-traumati c joint disorders (19 sources) Other Effusion, right knee 04-07-2020 Episodic MAXWE LL SELF non-traumati c joint disorders (5 sources) Other Other instability, right knee ; 04-07-2020 Episodi c ANGEL SELF non-traumati Translations: [ - Right knee gives c joint way M25.361] disorders (8 sources) Other upper Allergic rhinitis ; Translations: Chronic ANGEL SELF respiratory [Allergic rhinitis] Other Phone: disease [phone] (3 sources) 0 Peripheral 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 ; Translations: Other Phone: atherosclero [Unspecified atherosclerosis of [phone] sis rosebud arteries of extremities, 0 (4 sources) bilateral legs] Residual Personal history of irradiation 04-07-2020 Episodi c MICHELET PILLAI codes; unclassified (21 sources) 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) and upper limb Spondylosis; Spondylosis without myelopathy or 04-07-2020 Service Order Dispatcher liana MICHELET PILLAI intervertebr radiculopathy, lumbar regio n al disc disorders; other back problems (3 sources) Thyroid Hypothyroidism, unspecified ; 04-07-2020 Chronic MICHELET PILLAI disorders Translations: [Hypothyroidi sm] (20 sources) Past or Other Problems Problem Problem Date Last Documented Episodic/Chr Provider Classificati Recorded Date onic on Conditions Dizziness and giddiness ; Episodic MA XWELL SELF associated Translations: [ - Vertigo R42] Othe r Phone: with [phone] dizziness or 0 vertigo (15 sources) Mycoses Tinea unguium ; Translations: [ - Episodic ANGEL SELF (2 sources) Toenail fungus B35.1] Other Phone: Other Encounter for removal of sutures ; Episodic Lino aftercare Translations: [ - Encounter for And erson (7 sources) removal of sutures Z48.02] Other Ph one: Other Long-term (current) use of other Episodic MICHELET PILLAI aftercare medications (2 sources) Other and Other benign neoplasm of skin of Episodic Lino unspecified trunk ; Translations: [ - Benign An derson benign neoplasm of skin of trunk, except O ther Phone: neoplasm scrotum D23.5] [phone] (13 sources) 4 Other 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, including shoulder ; An derson al cancer of Translations: [Intraepidermal Other Phone: skin squamous carcinoma of arm] [phone] (20 sources) 4 Other Encounter for screening for Episodic Lino screening malignant neoplasm of skin ; Tadeo on for Translations: [Encounter for Other Phone: suspected screening mammogram for malignant [phone] conditions neoplasm of breast] 4 (not mental disorders or infectious disease) (19 sources) Other skin Actinic keratosis ; Translations: [ Episodic Lino disorders - Actinic keratosis L57.0] Damaso (13 sources) Other Phone: Other skin Other seborrheic keratosis ; Episodic Lino disorders Translations: [ - Seborrheic Tadeo on (13 sources) keratoses L82.1] Other Phone: Other skin Other melanin hyperpigmentation ; Episodic Lino disorders Translations: [ - Lentigo L81.4] Jada nicole (13 sources) Other Phone: Other upper Acute frontal sinusitis, Episodic MAX WELL SELF respiratory unspecified ; Translations: [Acute Other Phone: infections upper respiratory infection, [phone] (8 sources) unspecified] 0 Residual Personal history of irradiation, Episodic BOBAN ROSAS codes; presenting hazards to healt h unclassified (2 sources) Procedures Date Procedure Procedure Detail Performing Cl inician Start: Destruction Lino Petit 12-20-2019 premalignant Other Phone: lesion 1st Start: Destruction Lino Petit 12-20-2019 premalignant Other Phone: lesion 2-14 ea Start: Mammography [place] 11-25-2019 Start: Destruction Lino Petit 06-21-2019 premalignant Other Phone: lesion 1st Start: Destruction Lino Petit 06-21-2019 premalignant Other Phone: lesion 2-14 ea Start: Tangential biopsy Lino Petit 06-21-2019 skin single lesion Other Start: Excision mal Lino Petit 01-14-2019 lesion Other Phone: trunk/arm/leg 1.1-2.0 cm Start: Repair Lino Petit 01-14-2019 intermediate Other Phone: s/a/t/e 2.6-7.5 cm Start: [facility] visit kaity JOE Jody 12-30-2018 patient Other Phone: Start: Mammography ANGEL SELF 11-24-2018 End: 11-24-2018 Start: Excision mal Lino Petit 04-23-2018 lesion Other Phone: trunk/arm/leg 1.1-2.0 cm Start: Repair Lino Petit 04-23-2018 intermediate Other Phone: s/a/t/e 2.6-7.5 cm Results Test Name Value Interpreta Reference Facilit Date tion Range y Time surgical to [facility] pathology on null Surgical to [facility] See Report [facility] ([id number]) laboratory on 2020-03-13 Albumin [Mass/Vol] 4.2 g/dL Normal 3.6-5.1 Communi g/dL ty [facility] (36784) Albumin/Globulin 2.2 {ratio} Normal 1.0-2.5 Communi [Mass ratio] (calc) [facility] ([id number]) ALP [Catalytic 60 U/L Normal 37-153 U/L Communi activity/Vol] [facility] (23587) ALT [Catalytic 12 U/L Normal 6-29 U/L Communi activity/Vol] [facility] (86758) AST [Catalytic 16 U/L Normal 10-35 U/L Communi activity/Vol] [facility] (43461) Bilirubin [Mass/Vol] 0.6 mg/dL Normal 0.2-1.2 Commu ni mg/dL [facility] (99010) Calcium [Mass/Vol] 9.4 mg/dL Normal 8.6-10.4 Communi mg/dL [facility] (94997) Chloride [Moles/Vol] 104 mmol/L Normal 98-110 Commu ni mmol/L ty [facility] (89377) CO2 [Moles/Vol] 29 mmol/L Normal 20-32 Communi mmol/L ty [facility] (17640) Creatinine 0.81 mg/dL Normal 0.60-0.88 Communi [Mass/Vol] mg/dL [facility] (45236) GFR/1.73 sq 77 mL/min/{1.73_m2} Normal > OR = 60 Commun i M.predicted among mL/min/1.7 ty blacks MDRD 3m2 Health (S/P/Bld) [Vol Center rate/Area] [facility] (59175) GFR/1.73 sq 67 mL/min/{1.73_m2} Normal > OR = 60 Commun i M.predicted MDRD mL/min/1.7 ty (S/P/Bld) [Vol 3m2 Health rate/Area] [facility] (13399) Globulin (S) 1.9 g/dL Normal 1.9-3.7 Communi [Mass/Vol] g/dL ty (calc) [facility] (18969) Glucose [Mass/Vol] 92 mg/dL Normal 65-99 Communi mg/dL ty [facility] (98724) Potassium 4.2 mmol/L Normal 3.5-5.3 Communi [Moles/Vol] mmol/L ty [facility] (26307) Protein [Mass/Vol] 6.1 g/dL Normal 6.1-8.1 Communi g/dL ty [facility] (84252) Sodium [Moles/Vol] 141 mmol/L Normal 135-146 Communi mmol/L ty [facility] (23435) TSH Qn 1.12 m[IU]/L Normal 0.40-4.50 Communi mIU/L ty [facility] (06384) Urea nitrogen 19 mg/dL Normal 7-25 mg/dL Communi [Mass/Vol] ty [facility] (30218) Urea NOT APPLICABLE Invalid 6-22 Communi nitrogen/Creatinine Interpreta (calc) ty [Mass ratio] tion Code [facility] (97142) laboratory on 2019-09-07 Cholesterol 188 mg/dL Normal <200 mg/dL Communi [Mass/Vol] ty [facility] (78791) Cholesterol in HDL 63 mg/dL Normal >50 mg/dL Communi [Mass/Vol] ty [facility] (97411) Cholesterol in LDL 104 mg/dL High mg/dL Communi [Mass/Vol] (calc) ty [facility] (69741) Cholesterol non HDL 125 mg/dL Normal <130 mg/dL Commun i [Mass/Vol] (calc) ty [facility] (26627) Cholesterol.total/Ch 3.0 {ratio} Normal <5.0 Commu ni olesterol in HDL (calc) ty [Mass ratio] [facility] (40137) Triglyceride 113 mg/dL Normal <150 mg/dL Communi [Mass/Vol] ty [facility] (39706) TSH Qn 1.53 m[IU]/L Normal 0.40-4.50 Communi mIU/L ty [facility] (81382) not yet categorized on 2019-06-21 Pathologist: See Report Invalid [facility] tion [facility] (83992) laboratory on 2019-03-04 Albumin [Mass/Vol] 4.3 g/dL Normal 3.6-5.1 Communi g/dL [facility] (31981) Albumin/Globulin 2.0 {ratio} Normal 1.0-2.5 Communi [Mass ratio] (calc) ty [facility] (36416) ALP [Catalytic 58 U/L Normal 33-130 U/L Communi activity/Vol] [facility] (87240) ALT [Catalytic 12 U/L Normal 6-29 U/L Communi activity/Vol] [facility] (40302) AST [Catalytic 17 U/L Normal 10-35 U/L Communi activity/Vol] [facility] (93649) Bilirubin [Mass/Vol] 0.7 mg/dL Normal 0.2-1.2 Commu ni mg/dL ty [facility] (48612) Calcium [Mass/Vol] 9.6 mg/dL Normal 8.6-10.4 Communi mg/dL [facility] (99739) Chloride [Moles/Vol] 105 mmol/L Normal 98-110 Commu ni mmol/L [facility] (25512) Cholesterol 204 mg/dL High <200 mg/dL Communi [Mass/Vol] [facility] (49753) Cholesterol in HDL 63 mg/dL Normal >50 mg/dL Communi [Mass/Vol] ty [facility] () Cholesterol in LDL 112 mg/dL High Communi [Mass/Vol] ty [facility] (30396) Cholesterol non HDL 141 mg/dL High <130 mg/dL Commun i [Mass/Vol] (calc) ty [facility] () Cholesterol.total/Ch 3.2 {ratio} Normal <5.0 Commu ni olesterol in HDL (calc) ty [Mass ratio] [facility] (21519) CO2 [Moles/Vol] 29 mmol/L Normal 20-32 Communi mmol/L ty [facility] () Creatinine 0.78 mg/dL Normal 0.60-0.88 Communi [Mass/Vol] mg/dL ty [facility] (38525) Free T4 [Mass/Vol] 1.2 ng/dL Normal 0.8-1.8 Communi ng/dL ty [facility] (10581) GFR/1.73 sq 81 mL/min/{1.73_m2} Normal > OR = 60 Commun i M.predicted among mL/min/1.7 ty blacks MDRD [facility] (S/P/Bld) [Vol [place] rate/Area] [facility] (15448) GFR/1.73 sq 70 mL/min/{1.73_m2} Normal > OR = 60 Commun i M.predicted MDRD mL/min/1.7 ty (S/P/Bld) [Vol 2 Health rate/Area] [facility] (38484) Globulin (S) 2.1 g/dL Normal 1.9-3.7 Communi [Mass/Vol] g/dL ty (calc) [facility] (12185) Glucose [Mass/Vol] 89 mg/dL Normal 65-99 Communi mg/dL ty [facility] (89045) Potassium 4.2 mmol/L Normal 3.5-5.3 Communi [Moles/Vol] mmol/L ty [facility] (49971) Protein [Mass/Vol] 6.4 g/dL Normal 6.1-8.1 Communi g/dL ty [facility] (44717) Sodium [Moles/Vol] 141 mmol/L Normal 135-146 Communi mmol/L ty [facility] (84084) Triglyceride 173 mg/dL High <150 mg/dL Communi [Mass/Vol] ty [facility] (69617) TSH Qn 3.42 m[IU]/L Normal 0.40-4.50 Communi mIU/L ty [facility] (65466) Urea nitrogen 14 mg/dL Normal 7-25 mg/dL Communi [Mass/Vol] ty [facility] (12423) Urea NOT APPLICABLE Invalid 03-27 Communi nitrogen/Creatinine Interpreta (calc) ty [Mass ratio] tion Code [facility] (06613) not yet categorized on 2019-01-14 Pathologist: See Report Invalid [place] [facility] (51859) not yet categorized on 2018-12-14 Pathologist: See Report Invalid [place] [facility] (88603) not yet categorized on 2018-04-23 Pathologist: See Report Invalid Not [facility]pre[facility]ail[facility] tion Code [facility] (51505) not yet categorized on 2018-03-23 Pathologist: See Report Invalid Not [facility]pre[facility]ail[facility] tion Code [facility] (60319) Social History No Information Vital Signs Date Time Vital Sign Value Performing Clinician Facil it 12-20-2019 Body height [facility] 12:00-0400 Other Phone: [facility] ([id number] ) 12-20-2019 Body mass index 22.59 kg/m2 [facility] 12:00-0400 (BMI) [Ratio] Other Phone: [facility] (0 0000) 12-20-2019 Body weight 63.5 kg [facility] 12:00-0400 Other Phone: [facility] (99405 ) 12-20-2019 Blood Pressure 102/ [facility] dical 12:00-0400 60mm[Hg] Other Phone: [facility] (0 0000) 12-20-2019 Heart rate 77 /min [facility] 12:00-0400 Other Phone: [facility] (54918 ) 06-21-2019 Body height [facility] 12:00-0400 Other Phone: [facility] (34139 ) 06-21-2019 Body mass index 22.59 kg/m2 [facility] 12:00-0400 (BMI) [Ratio] Other Phone: [facility] (0 0000) 06-21-2019 Body weight 63.5 kg [facility] 12:00-0400 Other Phone: [facility] (97753 ) 06-21-2019 Blood Pressure 110/ [facility] dical 12:00-0400 66mm[Hg] Other Phone: [facility] (0 0000) 06-21-2019 Heart rate 80 /min [facility] al 12:00-0400 Other Phone: [facility] (44226 ) 01-14-2019 Body height [facility] 15:00-0400 Other Phone: [facility] (52477 ) 01-14-2019 Body mass index 22.59 kg/m2 [facility] 15:00-0400 (BMI) [Ratio] Other Phone: [facility] (0 0000) 01-14-2019 Body weight 63.5 kg [facility] 15:00-0400 Other Phone: [facility] (57995 ) 12-30-2018 Body height 165.1 cm [facility] 16:00-0400 Other Phone: [facility] [place] (13050) 12-30-2018 Body mass index 23.96 kg/m2 JO[facility] 16:00-0400 (BMI) [Ratio] Other Phone: [facility] [place] (42813) 12-30-2018 Body temperature 98.6 [degF] JOE Vera [facility] 16:00-0400 Other Phone: [facility] [place] (82642) 12-30-2018 Body weight 65.32 kg [facility] Other Phone: [facility] [place] (17146) 06-04-2018 Body height [facility] 14:30-0400 Other Phone: [facility] (99308 ) 06-04-2018 Body mass index 22.59 kg/m2 [facility] 14:30-0400 (BMI) [Ratio] Other Phone: [facility] (0 0000) 06-04-2018 Body weight 63.5 kg [facility] 14:30-0400 Other Phone: [facility] (33766 ) 06-04-2018 Blood Pressure 116/ [facility] dical 14:30-0400 62mm[Hg] Other Phone: [facility] (0 0000) 06-04-2018 Heart rate 77 /min [facility] 14:30-0400 Other Phone: [facility] ([id number] ) 04-23-2018 Body height [facility] 14:50-0400 Other Phone: [facility] ([id number] ) 04-23-2018 Body mass index 22.59 kg/m2 [facility] 14:50-0400 (BMI) [Ratio] Other Phone: [facility] (0 0000) 04-23-2018 Body weight 63.5 kg [facility] 14:50-0400 Other Phone: [facility] (98169 ) 04-23-2018 Blood Pressure 119/ [facility] dical 14:50-0400 59mm[Hg] Other Phone: [facility] (0 0000) 04-23-2018 Heart rate 85 /min [facility] 14:50-0400 Other Phone: [facility] (13028 ) Functional Status The data below is from unstructured sourcesNo functional status information available.No functional status information available.No functional status information available. Mental Status No Information History general Narrative - Reported Note Date & Note Facility Type History general Narrative - Reported Type Medical Breast Cancer History Medical Rheumatic Fever History Medical MRSA History Medical SCC History Surgical Lumpectomy History Surgical Tonsilectomy History Surgical Cataract SUrgery History Surgical Macular Hole History Surgical Arthroscopy on lt knee History Surgical Both hips replaced History [facility] (82575) History general Narrative - Reported Note Date & Note Facility Type History general Narrative - Reported Type Medical Breast Cancer History Medical Rheumatic Fever History Medical MRSA History Medical SCC History Medical BCC History Surgical Lumpectomy History Surgical Tonsilectomy History Surgical Cataract SUrgery History Surgical Macular Hole History Surgical Arthroscopy on lt knee History Surgical Both hips replaced History Surgical Exc of a BCC 01/14/2019 History [facility] 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 Discharge Instructions No hospital discharge instruction information available.No hospital discharge instruction information available. Additional Source Comments This clinical document has been generated using [employer] software that has been certified by the Office of the National Coordinator for Health Information Technology (ONC 15.99.04.3023.Diam.[id number]) and the National Committee for Vice President Sales (NCQA, as an eMeasure certified technology). FOR RECORDS PERTAINING TO PATIENTS WHO ARE OR HAVE BEEN ENROLLED IN A CHEMICAL D EPENDENCY/SUBSTANCE ABUSE PROGRAM, SOME INFORMATION MAY BE OMITTED. This clinica l summary was aggregated from multiple sources. Caution should be exercised in using it in the provision of clinical care. This summary normalizes information from multiple sources, and as a consequence, information in this document may ma terially change the coding, format and clinical context of patient data. In alan tion, data may be omitted in some cases. CLINICAL DECISIONS SHOULD BE BASED ON T HE PRIMARY CLINICAL RECORDS. [employer] provides no warranty or guara ntee of the accuracy or completeness of information in this document.The followi ng information is based on time limited clinical information UNRECOGNIZED CONTENT PROVIDED BELOW FOR UNRECOGNIZED SECTION REASON FOR VISIT 3wk follow up after Rx returning your call Left mid back; Superficial multifocal basal cell carcinoma, transected Left mid back; Superficial multifocal basal ce ll carcinoma, transectedmips-mtbjuu1re stitch removal mips-biopsymed refill6 mo f/umips-biopsyLAB ORDERS FOR 03/06Cold symptoms, c/o cough, sore throat, right e ar check, nasal & chest congestion since or Friday6 month check
--- OUTSIDE RECORDS SUMMARY | 2020-04-15 14:38 | XMS REPORT ---
Author Author Rocio Petit Organization [facility] Address 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 239518024 ALLERGIES No Information ENCOUNTERS Encounter Location Date Diagnosis [facility] [address] [id number] Jun, [facility] [address] [id number] Jan, [facility] [address] [place], [place] [id number] Dec, [facility] [address] [id number] Dec, Benign neoplasm of skin of t runk, except scrotum D23.5 ; Personal history of other malignant neoplasm of skin Z85.828 ; Encounter for screening for malignant neoplasm of skin Z12.83 ; Actinic keratosis L57.0 ; Neoplasm of uncertain behavior of skin D48.5 ; Seborrheic keratoses L82.1 and Lentigo L81.4 [facility] [address] [id number] May, Squamous cell carcinoma in s itu of skin of left forearm D04.62 [facility] [address] [id number] Apr, [facility] [address] [id number] Apr, [facility] [address] in [facility] [address] [place], [place] [id number] Apr, Squamous cell carcinoma in s itu of skin of left forearm D04.62 [facility] [address] in [facility] [address] [place], [place] [id number] Mar, [facility] [address] in [facility] [address] [place], [place] [id number] Mar, Solar urticaria L56.3 and 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 IMMUNIZATIONS No Known Immunizations SOCIAL HISTORY Never Assessed REASON FOR VISIT returning your call PLAN OF CARE VITAL SIGNS MEDICATIONS Unknown Medications RESULTS No Results PROCEDURES No Known procedures INSTRUCTIONS MEDICATIONS ADMINISTERED No Known Medications MEDICAL (GENERAL) HISTORY Type Description Date Medical History Breast Cancer Medical History Rheumatic Fever Medical History MRSA Medical History SCC Surgical History Lumpectomy Surgical History Tonsilectomy Surgical History Cataract SUrgery Surgical History Macular Hole Surgical History Arthroscopy on lt knee Surgical History Both hips replaced
--- OUTSIDE RECORDS SUMMARY | 2020-04-15 14:38 | XMS REPORT ---
Author Author Rocio DE LEON [facility] Address [address] [place] [address] Care Team Providers Care Manager Performance Name Role Phone ANGEL DE LEON Unavailable PROBLEMS Type Condition ICD9-CM Code [id number] Code Onset Dates Condition S tatus SNOMED Code Problem Allergic rhinitis J30.9 Active 61 407286 Problem Age-related osteoporosis without current pathological fracture M81.0 Active 579193232 Problem Other type of osteoarthritis, unspecified site M19 .90 Active 907554618 Problem Hypothyroidism, unspecified type E03.9 Active 17001506 Problem Hyperlipidemia, mixed E78.2 Active 566709092 Problem Hyperlipidemia E78.5 Active 87142 004 ALLERGIES No Information ENCOUNTERS Encounter Location Date Diagnosis [address] [address] Sep, [address] [address] Apr, [address] [address] Apr, [address] [address] Mar, Dizziness R42 [address] [address] Mar, Hyperlipidemia E78.5 ; Hypothyroidism, u nspecified type E03.9 and Other type of osteoarthritis, unspecified site M19.[address] [address] Mar, [address] [address] February, [address] [address] February, Right knee gives way M25.[address] [place] [address] February, Hypothyroidism, unspecified type E03.9 a nd Hyperlipidemia, mixed E78.[address] [address] February, [facility] [address] [address] Jan, [facility] [address] [address] Jan, [address] [address] Jan, [address] [address] Jan, [address] [address] Dec, Acute frontal sinusitis, recurrence not specified J01.10 and Acute URI J06.[address] [address] Dec, Hypothyroidism, unspecified type E03.9 a nd Hyperlipidemia, mixed E78.[address] [address] Dec, [address] [address] Dec, [facility] [address] [address] Dec, [address] [address] Nov, Vertigo R42 [address] [address] Nov, [address] [address] Nov, Screening mammogram, encounter for Z12.3 1 IMMUNIZATIONS No Known Immunizations SOCIAL HISTORY Never Assessed REASON FOR VISIT med refill PLAN OF CARE VITAL SIGNS MEDICATIONS Medication Instructions Dosage Frequency Start Date End Date Duration S tatus Levothyroxine Sodium 50 MCG Orally Once a day 1 tablet on an empty stomach in the morning 24h 90 days Active RESULTS No Results PROCEDURES No Known procedures INSTRUCTIONS MEDICATIONS ADMINISTERED No Known Medications MEDICAL (GENERAL) HISTORY Type Description Date Medical History Hypothyroidism, unspecified type Medical History Hyperlipidemia Medical History Age-related osteoporosis without current pathological fracture Medical History Allergic rhinitis Surgical History tonsillectomy 1939 Surgical History breast lumpectomy -acquired MRSA infection, lost use of left arm & had PT before pt could begin radiation 09/23/2003 Surgical History macular hole in retina right eye, stage 4, cataract removed also 10/28/2006 Surgical History cataract surgery left eye 05/24/2008 Surgical History macular hole in retina left eye stage 2 06/28/2008 Surgical History arthroscopy left knee 12/07/2009 Surgical History right hip replaced 02/08/2011 Surgical History left hip replaced 12/07/2012 Hospitalization History surgeries
--- OUTSIDE RECORDS SUMMARY | 2020-04-15 14:38 | XMS REPORT ---
Author Author Rocio Petit Organization [facility] Address 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 790229331 Problem Solar urticaria L56.3 Active 1034 7006 ALLERGIES No Known Allergies ENCOUNTERS Encounter Location Date Diagnosis [facility] [address] [id number] Dec, [facility] [address] [id number] May, Squamous cell carcinoma in s itu of skin of left forearm D04.62 [facility] [address] [id number] Apr, [facility] [address] [id number] Apr, [facility] [address] [id number] Apr, Squamous cell carcinoma in s itu of skin of left forearm D04.62 [facility] [address] [id number] Mar, [facility] [address] [id number] Mar, Solar urticaria L56.3 and 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 IMMUNIZATIONS No Known Immunizations SOCIAL HISTORY Never Assessed REASON FOR VISIT 3wk follow up after Rx PLAN OF CARE Activity Details Follow Up 6 m Reason: VITAL SIGNS Heart Rate 77 /min 2018-06-04 Height 5 ft 6 in in 2018-06-04 Weight 140 lbs 2018-06-04 BMI 22.59 kg/m2 2018-06-04 Blood pressure systolic 116 mm Hg 2018-06-04 Blood pressure diastolic 62 mm Hg 2018-06-04 MEDICATIONS Medication Instructions Dosage Frequency Start Date End Date Duration S tatus Celebrex Active Lovastatin Active Alendronate Sodium Activ e Levothyroxine Sodium Act rachell Calcium Active ZyrTEC Active Fluorouracil 5 % Externally apply along suture line on fo rearm daily for 3 wks 1 application to affected area Apr, 21 days Active Doxycycline Hyclate 100 MG Orally Twice a day 1 capsule 12h 19 J 2017 7 days Active RESULTS No Results PROCEDURES No [...]
--- OUTSIDE RECORDS SUMMARY | 2020-04-15 14:38 | XMS REPORT ---
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 Active 37 4362714 Problem Hyperlipidemia, mixed E78.2 Active 218265467 Problem Allergic rhinitis J30.9 Active 61 268924 Problem Age-related osteoporosis without current pathological fracture M81.0 Active 373281006 Problem Hyperlipidemia E78.5 Active 80389 004 ALLERGIES No Information ENCOUNTERS Encounter Location Date Diagnosis [address] [id number] [address] Sep, [address] [id number] [address] 10 Mar, 2020 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, with unspecified presence of clinical manifestation I70.203 ; Hyperlipidemia E78.5 ; Hypothyroidism, unspecified type E03.9 and Arthritis of back M47.[address] [id number] [address] 08 Mar, 2020 Hyperlipidemia, mixed E78.2 and Hypothyroidism, unspecified type E03.[address] [id number] [address] Dec, [address] 340[address] [id number] [address] Nov, Encounter for Medicare annua l wellness exam Z00.00 and Screening mammogram, encounter for Z12.31 HARLEY GODINEZ [address] [id number] [place] [address] Oct, HARLEY GODINEZ [address] 340[address] [id number] [place] [address] Sep, Encounter for Medicare annua l wellness exam Z00.00 ; Atherosclerosis of ute artery of both lower extremities, with unspecified presence of clinical manifestation I70.203 ; Hypothyroidism, unspecified type E03.9 ; Hyperlipidemia, mixed E78.2 ; Dizziness R42 ; Toenail fungus B35.1 and Screening mammogram, encounter for Z12.31 [facility]LEY GODINEZ [address] [id number] [place] [address] Sep, Hyperlipidemia E78.5 and Hyp othyroidism, unspecified type E03.9 [facility] [address] [id number] [place] [address] Jul, [facility] [address] [id number] [place] [address] Jul, Dizziness R42 [facility] [address] [id number] [place] [address] Jul, Dizziness R42 HARLEY GODINEZ [address] 340[address] [id number] [place] [address] Jun, [facility] [address] [id number] [place] [address] Jun, Acute frontal sinusitis J01. 10 [facility] [address] 340[address] [id number] [place] [address] Apr, HARLEY GODINEZ [address] [id number] [place] [address] Apr, [facility] [address] 340B [id number] [place] [address] Mar, Dizziness R42 [facility] [address] 340B [id number] [place] [address] Mar, Hyperlipidemia E78.5 ; Hypot hyroidism, unspecified type E03.9 and Other type of osteoarthritis, unspecified site M19.90 [facility] [address] [id number] [place] [address] Mar, [facility] [address] 340[address] [id number] [place] [address] February, [facility] [address] 340[address] [id number] [place] [address] February, Right knee gives way M25.361 [facility] [address] 340[address] [id number] [place] [address] February, Hypothyroidism, unspecified type E03.9 and Hyperlipidemia, mixed E78.2 [facility] GODINEZ [address] 340B [id number] [place] [address] February, Dizziness R42 [facility] FELDMAN [address] 340[address] [id number] [place] [address] Jan, [facility] GODINEZ [address] 340[address] [id number] [place] [address] Jan, [facility] GODINEZ [address] 340[address] [id number] [place] [address] Jan, [facility] GOD[facility] [address] 340[address] [id number] [place] [address] Jan, [facility] [address] [id number] [place] [address] Dec, Acute frontal sinusitis, rec urrence not specified J01.10 and Acute URI J06.9 [facility] [address] [id number] [place] [address] Dec, Hypothyroidism, unspecified type E03.9 and Hyperlipidemia, mixed E78.2 [facility] GODINEZ [address] 340[address] [id number] [place] [address] Dec, [facility] GODINE[facility] [address] 340[address] [id number] [place] [address] Dec, [facility] GODINEZ [address] 340[address] [id number] [place] [address] Dec, [facility] GODINE[facility] [address] 340B [id number] [place] [address] Nov, Vertigo R42 [facility] GASTON GODINEZ [address] 340B [id number] [place] [address] Nov, [facility] G[facility]ON GODINEZ [address] 340[address] [id number] [place] [address] Nov, Screening mammogram, encount er for Z12.31 IMMUNIZATIONS No Known Immunizations SOCIAL HISTORY Never Assessed REASON FOR VISIT Fastamax infusion date PLAN OF CARE VITAL SIGNS MEDICATIONS Unknown Medications RESULTS No Results PROCEDURES No Known procedures INSTRUCTIONS MEDICATIONS ADMINISTERED No Known Medications MEDICAL (GENERAL) HISTORY Type Description Date Medical History Hypothyroidism, unspecified type Medical History Hyperlipidemia Medical History Age-related osteoporosis without current pathological fracture Medical History Allergic rhinitis Surgical History tonsillectomy 1940 Surgical History breast lumpectomy -acquired MRSA infection, [...]
--- OUTSIDE RECORDS SUMMARY | 2020-04-15 14:38 | XMS REPORT ---
Author Author Rocio DE LEON [facility] Address [address] [place] [address] Care Team Providers Care Fish Hatchery Supervisor Name Role Phone ANGEL DE LEON Unavailable PROBLEMS Type Condition ICD9-CM Code TOC71-ON Code Onset Dates Condition S tatus SNOMED Code Problem Other type of osteoarthritis, unspecified site M19 .90 Active 822742863 Problem Atherosclerosis of knik ar norma of both lower extremities, with unspecified presence of clinical manifestation I70.203 Active 837465099888065 Problem Hyperlipidemia E78.5 Active 25360 004 Problem Hypothyroidism, unspecified type E03.9 Active 77720623 Problem Hyperlipidemia, mixed E78.2 Active 690242174 Problem Allergic rhinitis J30.9 Active 61 306951 Problem Age-related osteoporosis without current pathological fracture M81.0 Active 422454895 ALLERGIES No Information ENCOUNTERS Encounter Location Date Diagnosis [address] [address] Mar, [address] [place] [address] Nov, [address] [place] [address] Oct, [address] [place] [address] Sep, Encounter for Medicare annua l wellness exam Z00.00 ; Atherosclerosis of knik artery of both lower extremities, with unspecified presence of clinical manifestation I70.203 ; Hypothyroidism, unspecified type E03.9 ; Hyperlipidemia, mixed E78.2 ; Dizziness R42 ; Toenail fungus B35.1 and Screening mammogram, encounter for Z12.31 [address] [place] [address] Sep, Hyperlipidemia E78.5 and Hyp othyroidism, unspecified type E03.9 [facility] G[facility]ON GODINEZ [address] [place] [address] Jul, [facility] G[facility]ON GODINEZ [address] [place] [address] Jul, Dizziness R42 [facility] [address] [place] [address] Jul, Dizziness R42 [facility] GODINEZ [address] [place] [address] Jun, [facility] G[facility]ON GODINEZ [address] [place] [address] Jun, Acute frontal sinusitis J01. 10 [facility] GODINEZ [address] [place] [address] Apr, [facility] GASTON GODINEZ [address] [place] [address] Apr, [facility] GASTON GODINEZ [address] [place] [address] Mar, Dizziness R42 [facility] GODINEZ [address] [place] [address] Mar, Hyperlipidemia E78.5 ; Hypot hyroidism, unspecified type E03.9 and Other type of osteoarthritis, unspecified site M19.90 [facility] GODINEZ [address] [place] [address] Mar, [facility] GODINEZ [address] [place] [address] February, [facility] GODINEZ [address] [place] [address] February, Right knee gives way M25.361 [facility] GODINEZ [address] [place] [address] February, Hypothyroidism, unspecified type E03.9 and Hyperlipidemia, mixed E78.2 [facility] GODINEZ [address] [place] [address] February, Dizziness R42 [facility] GODINEZ [address] [place] [address] Jan, [facility] GODINEZ [address] [place] [address] Jan, [facility] GODINEZ [address] [place] [address] Jan, [facility] GASTON GODINEZ [address] [place] [address] Jan, [facility] G[facility]ON GODINEZ [address] [place] [address] Dec, Acute frontal sinusitis, rec urrence not specified J01.10 and Acute URI J06.9 [facility] G[facility]ON GODINEZ [address] [place] [address] Dec, Hypothyroidism, unspecified type E03.9 and Hyperlipidemia, mixed E78.2 [facility] GODINEZ [address] [place] [address] Dec, [facility] GODINEZ [address] [place] [address] Dec, [facility] G[facility]ON GODINEZ [address] [place] [address] Dec, [facility] GODINEZ [address] [place] [address] Nov, Vertigo R42 [facility] GODINEZ [address] [place] [address] Nov, [facility] G[facility] GODINEZ [address] [place] [address] Nov, Screening mammogram, encount er for Z12.31 IMMUNIZATIONS No Known Immunizations SOCIAL HISTORY Never Assessed REASON FOR VISIT LAB ORDERS FOR 03/06 PLAN OF CARE VITAL SIGNS MEDICATIONS Unknown [...]
--- OUTSIDE RECORDS SUMMARY | 2020-04-15 14:38 | XMS REPORT ---
Author Author Rocio Petit Organization [facility] Address 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 282089675 Problem Solar urticaria L56.3 Active 1034 7006 ALLERGIES No Information ENCOUNTERS Encounter Location Date Diagnosis [facility] [address] [id number] Apr, [facility] [address] [id number] Apr, [facility] [address] [facility] in [address] [id number] Apr, Squamous cell carcinoma in s itu of skin of left forearm D04.62 [facility] [address] [facility] [address] [id number] Mar, [facility] [address] [facility] [address] [id number] Mar, Solar urticaria L56.3 and 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 IMMUNIZATIONS No Known Immunizations SOCIAL HISTORY Never Assessed REASON FOR VISIT PLAN OF CARE VITAL SIGNS MEDICATIONS Medication Instructions Dosage Frequency Start Date End Date Duration S tatus Fluorouracil 5 % Externally apply along suture line on fo rearm daily for 3 wks 1 application to affected area Apr, 21 days Active RESULTS No Results PROCEDURES No Known procedures INSTRUCTIONS MEDICATIONS ADMINISTERED No Known Medications MEDICAL (GENERAL) HISTORY Type Description Date Medical History Breast Cancer Medical History Rheumatic Fever Medical History MRSA Surgical History Lumpectomy Surgical History Tonsilectomy Surgical History Cataract SUrgery Surgical History Macular Hole Surgical History Arthroscopy on lt knee Surgical History Both hips replaced
--- OUTSIDE RECORDS SUMMARY | 2020-04-15 14:38 | XMS REPORT ---
Author Author Rocio Petit Organization [facility] Address 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 193490622 Problem Solar urticaria L56.3 Active 1037 7006 ALLERGIES No Known Allergies ENCOUNTERS Encounter Location Date Diagnosis [facility] [address] in [facility] [address] [place] [id number] Apr, Squamous cell carcinoma in s itu of skin of left forearm D04.62 [facility] [address] in [facility] [address] [place] [id number] 18 Mar, 2018 [facility] [address] [facility] in [facility] [address] [place] [id number] Mar, Solar urticaria L56.3 and 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 IMMUNIZATIONS No Known Immunizations SOCIAL HISTORY Never Assessed REASON FOR VISIT Left Mid Forearm; 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 PLAN OF CARE Activity Details Follow Up 2 Weeks Reason: Pending Test Surgical to [facility] Pathology VITAL SIGNS Heart Rate 85 /min 2018-04-23 Height 5 ft 6 in in 2018-04-23 Weight 140 lbs 2018-04-23 BMI 22.59 kg/m2 2018-04-23 Blood pressure systolic 119 mm Hg 2018-04-23 Blood pressure diastolic 59 mm Hg 2018-04-23 MEDICATIONS Medication Instructions Dosage Frequency Start Date End Date Duration S tatus Calcium Active Levothyroxine Sodium Act rachell Alendronate Sodium Activ e Doxycycline Hyclate 100 MG Orally Twice a day 1 capsule 12h 19 J , 2018 7 days Active ZyrTEC Active Celebrex Active Lovastatin Active RESULTS No Results PROCEDURES Procedure Date Ordered Result Body Site REPAIR SCALP/AXILLA/TRUNK/ARMS/LEGS 2.6-7.5CM April 23, 2018 [address]ARMSLEGS DANE 112 CM April 23, 2018 INSTRUCTIONS MEDICATIONS ADMINISTERED No Known Medications MEDICAL (GENERAL) HISTORY Type Description Date Medical History Breast Cancer Medical History Rheumatic Fever Medical History MRSA Surgical History Lumpectomy Surgical History Tonsilectomy Surgical History Cataract SUrgery Surgical History Macular Hole Surgical History Arthroscopy on lt knee Surgical History Both hips replaced
--- OUTSIDE RECORDS SUMMARY | 2020-04-15 14:38 | XMS REPORT ---
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, with unspecified presence of clinical manifestation I70.203 Active 686510723690650 Problem Hyperlipidemia E78.5 Active 25957 004 Problem Hypothyroidism, unspecified type E03.9 Active 84167101 Problem Hyperlipidemia, mixed E78.2 Active 234323988 Problem Allergic rhinitis J30.9 Active 61 610755 Problem Age-related osteoporosis without current pathological fracture M81.0 Active 866560012 ALLERGIES Substance Reaction Event Type Date Status Sulfamethoxazole Unknown Drug Allergy Dec, Active Penicillamine Unknown Drug Allergy Dec, Active ENCOUNTERS Encounter Location Date Diagnosis [address] [place] [address] Mar, [address] [place] [address] Nov, Encounter for Medicare annua l wellness exam Z00.00 and Screening mammogram, encounter for Z12.31 [address] [place] [address] Oct, [address] [place] [address] Sep, Encounter for Medicare annua l wellness exam Z00.00 ; Atherosclerosis of little shell tribe artery of both lower extremities, with unspecified presence of clinical manifestation I70.203 ; Hypothyroidism, unspecified type E03.9 ; Hyperlipidemia, mixed E78.2 ; Dizziness R42 ; Toenail fungus B35.1 and Screening mammogram, encounter for Z12.31 [facility] GODINEZ [address] [place] [address] Sep, Hyperlipidemia E78.5 and Hyp othyroidism, unspecified type E03.9 [facility] GODINE[facility] [address] [place] [address] Jul, [facility] G[facility]ON GODINEZ [address] [place] [address] Jul, Dizziness R42 [facility] [address] [place] [address] Jul, Dizziness R42 [facility] [address] [place] [address] Jun, [facility] [address] [place] [address] Jun, Acute frontal sinusitis J01. 10 [facility] [address] [place] [address] Apr, [facility] [address] [place] [address] Apr, [facility] [address] [place] [address] Mar, Dizziness R42 [facility] [address] [place] [address] Mar, Hyperlipidemia E78.5 ; Hypot hyroidism, unspecified type E03.9 and Other type of osteoarthritis, unspecified site M19.90 [facility] [address] [place] [address] Mar, [facility] [address] [place] [address] February, [facility] [address] [place] [address] February, Right knee gives way M25.361 [facility] [address] [place] [address] February, Hypothyroidism, unspecified type E03.9 and Hyperlipidemia, mixed E78.2 [facility] G[facility]ON GODINEZ [address] [place] [address] February, Dizziness R42 [facility] FELDMAN [address] [place] [address] Jan, [facility] [address]Z [address] [place] [address] Jan, [facility] [address]Z [address] [place] [address] Jan, [facility] GOD[address]Z [address] [place] [address] Jan, [facility] G[facility]ON GODINEZ [address] [place] [address] Dec, Acute frontal sinusitis, rec urrence not specified J01.10 and Acute URI J06.9 [facility] [address] [place] [address] Dec, Hypothyroidism, unspecified type E03.9 and Hyperlipidemia, mixed E78.2 [facility] [address] [address] [place] [address] Dec, [facility] GODINEZ [address] [place] [address] Dec, [facility] [address]Z [address] [place] [address] Dec, [facility] GODINEZ [address] [place] [address] Nov, Vertigo R42 [facility] [address] [place] [address] Nov, [facility] [address] [place] [address] Nov, Screening mammogram, encount er for Z12.31 IMMUNIZATIONS No Known Immunizations SOCIAL HISTORY Never Assessed REASON FOR VISIT Cold symptoms, c/o cough, sore throat, right ear check, nasal & chest congestion since or Friday PLAN OF CARE Activity Details Follow Up prn Reason: VITAL SIGNS Height 65 in 2018-12-30 Weight 144 lbs 2018-12-30 Temperature 98.6 degrees Fahrenheit 2018-12-30 BMI 23.96 kg/m2 2018-12-30 Blood pressure systolic 124 mmHg 2018-12-30 Blood pressure diastolic 74 mmHg 2018-12-30 MEDICATIONS Medication Instructions Dosage Frequency Start Date End Date Duration S tatus Celebrex 200 MG Orally Once a day 1 capsule with food 24h 30 day(s) Active Amoxicillin 875 MG Orally every 12 hrs 1 tablet 12h 10 day(s) Active Cetirizine HCl 10 MG Orally Once a day 1 tablet 24h 30 day(s) Active Lovastatin 20 MG Orally at bedtime 2 tablets 90 days Active Tessalon Perles 100 MG Orally Three times a day, prn cough 1 cap verenice as needed Dec, 7 days Active Centrum Active Levothyroxine Sodium 50 MCG Orally Once a day 1 tablet on an empty stomach in the morning 24h 90 days Active Calcium + D Active RESULTS No Results PROCEDURES Procedure Date Ordered Result Body Site [facility] VISIT NEW PATIENT December 30, 2018 INSTRUCTIONS MEDICATIONS ADMINISTERED No Known Medications [...]
--- OUTSIDE RECORDS SUMMARY | 2020-04-15 14:38 | XMS REPORT ---
Author Author Rocio Petit Organization [facility] Address 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 PLAN OF CARE Activity Details Follow Up pending path Reason: Pending Test Surgical to [facility] Pathology VITAL SIGNS Heart Rate 62 /min 2018-03-23 Height 5 ft 6 in in 2018-03-23 Weight 140 lbs 2018-03-23 BMI 22.59 kg/m2 2018-03-23 Blood pressure systolic 112 mm Hg 2018-03-23 Blood pressure diastolic 64 mm Hg 2018-03-23 MEDICATIONS Medication Instructions Dosage Frequency Start Date End Date Duration S tatus Alendronate Sodium Activ e Levothyroxine Sodium Act rachell Lovastatin Active ZyrTEC Active Celebrex Active Calcium Active RESULTS No Results PROCEDURES Procedure Date Ordered Result Body Site BIOPSY OF SKIN LESION March 23, 2018 INSTRUCTIONS MEDICATIONS ADMINISTERED No Known Medications MEDICAL (GENERAL) HISTORY Type Description Date Medical History Breast Cancer Medical History Rheumatic Fever Medical History MRSA Surgical History Lumpectomy Surgical History Tonsilectomy Surgical History Cataract SUrgery Surgical History Macular Hole Surgical History Arthroscopy on lt knee Surgical History Both hips replaced
--- OUTSIDE RECORDS SUMMARY | 2020-04-15 14:38 | XMS REPORT | Continuity of Care Document ---
Author Organization Unknown Address Unknown Phone Unavailable Allergies Active Description Code Type Severity Reaction Onset Reported/Identified Relationship to Patient Clinical Status Yes Penicillins [id number] Drug Aller gy Unknown N/A 04/09/2020 Yes Sulfa (Sulfonamide Antibiotics) [id number] Drug Allergy Unknown N/A 020 Medications There is no data. Problems Date Dx Coded Attending Type Code Diagnosis Diagnosed By 2014 ROSAS, BOBAN N Ot 174.9 2014 ROSAS, BOBAN N Ot 196.3 2014 ROSAS, BOBAN N Ot 244.9 2014 ROSAS, BOBAN N Ot 733.00 2014 ROSAS, BOBAN N Ot V15.3 2014 ROSAS, BOBAN N Ot V58.69 10/14/2014 ROSAS, BOBAN N Ot 174.9 10/14/2014 ROSAS, BOBAN N Ot 196.3 10/14/2014 ROSAS, BOBAN N Ot 244.9 10/14/2014 ROSAS, BOBAN N Ot 733.00 10/14/2014 ROSAS, BOBAN N Ot V15.3 10/14/2014 ROSAS, BOBAN N Ot V58.69 09/06/2015 ROSAS, BOBAN N Ot M81.0 09/06/2015 ROSAS, BOBAN N Ot Z08 09/06/2015 ROSAS, BOBAN N Ot Z79.899 09/06/2015 ROSAS, BOBAN N Ot Z85.3 09/06/2015 ROSAS, BOBAN N Ot Z92.3 09/14/2015 ROSAS, BOBAN N Ot M81.0 09/14/2015 ROSAS, BOBAN N Ot Z08 09/14/2015 ROSAS, BOBAN N Ot Z79.899 09/14/2015 ROSAS, BOBAN N Ot Z85.3 09/14/2015 ROSAS, BOBAN N Ot Z92.3 08/07/2016 MICHELET PILLAI Mic Ot M81.0 AGE- RELATED OSTEOPOROSIS W/O CURRENT PAT 08/07/2016 MICHELET PILLAI Mic Ot Z08 ENCNTR FOR FOLLOW-UP EXAM AFTER TRTMT FO 08/07/2016 MICHELET PILLAI Mic Ot Z79.899 OTHER DIRECTOR EMBALMER (CURRENT) DRUG THERAPY 08/07/2016 MICHELET PILLAI N Ot Z85.3 PERSONAL HISTORY OF MALIGNANT NEOPLASM O 08/07/2016 MICHELET PILLAI Mic Ot Z92.3 PERSONAL HISTORY OF IRRADIATION 08/07/2016 MICHELET PILLAI N Ot M81.0 AGE- RELATED OSTEOPOROSIS W/O CURRENT PAT 08/07/2016 MICHELET PILLAI Mic Ot Z08 ENCNTR FOR FOLLOW-UP EXAM AFTER TRTMT FO 08/07/2016 MICHELET PILLAI Mic Ot Z79.899 OTHER DIRECTOR EMBALMER (CURRENT) DRUG THERAPY 08/07/2016 ROSAS, CRUZYULIA N Ot Z85.3 PERSONAL HISTORY OF MALIGNANT NEOPLASM O 08/07/2016 ROSAS, CRUZYULIA Mic Ot Z92.3 PERSONAL HISTORY OF IRRADIATION 08/27/2016 MICHELET PILLAI N Ot M81.0 AGE- RELATED OSTEOPOROSIS W/O CURRENT PAT 08/27/2016 MICHELET PILLAI N Ot Z08 ENCNTR FOR FOLLOW-UP EXAM AFTER TRTMT FO 08/27/2016 MICHELET PILLAI Mic Ot Z79.899 OTHER DIRECTOR EMBALMER (CURRENT) DRUG THERAPY 08/27/2016 MICHELET PILLAI Mic Ot Z85.3 PERSONAL HISTORY OF MALIGNANT NEOPLASM O 08/27/2016 MICHELET PILLAI Mic Ot Z92.3 PERSONAL HISTORY OF IRRADIATION 09/02/2016 MICHELET PILLAI Mic Ot M81.0 AGE- RELATED OSTEOPOROSIS W/O CURRENT PAT 09/02/2016 MICHELET PILLAI N Ot Z08 ENCNTR FOR FOLLOW-UP EXAM AFTER TRTMT FO 09/02/2016 MICHELET PILLAI Mic Ot Z79.899 OTHER DIRECTOR EMBALMER (CURRENT) DRUG THERAPY 09/02/2016 ROSAS CRUZYULIA N Ot Z85.3 PERSONAL HISTORY OF MALIGNANT NEOPLASM O 09/02/2016 ROSAS CRUZYULIA Mic Ot Z92.3 PERSONAL HISTORY OF IRRADIATION 08/13/2017 ROSAS CRUZYULIA Mic Ot E03.9 HYPOTHYROIDISM, UNSPECIFIED 08/13/2017 MICHELET PILLAI N Ot M25.511 PAIN IN RIGHT SHOULDER 08/13/2017 MICHELET PILLAI N Ot M81.0 AGE- RELATED OSTEOPOROSIS W/O CURRENT PAT 08/13/2017 MICHELET PILLAI N Ot R13.10 DYSPHAGIA, UNSPECIFIED 08/13/2017 MICHELET PILLAI N Ot Z08 ENCNTR FOR FOLLOW-UP EXAM AFTER TRTMT FO 08/13/2017 MICHELET PILLAI N Ot Z79.899 OTHER PENITENTIARY (CURRENT) DRUG THERAPY 08/13/2017 MICHELET PILLAI N Ot Z85.3 PERSONAL HISTORY OF MALIGNANT NEOPLASM O 08/13/2017 ROSASMICHELET COX N Ot Z92.3 PERSONAL HISTORY OF IRRADIATION 09/30/2017 ROSAS CRUZYULIA N Ot E03.9 HYPOTHYROIDISM, UNSPECIFIED 09/30/2017 MICHELET PILLAI N Ot M25.511 PAIN IN RIGHT SHOULDER 09/30/2017 MICHELET PILLAI N Ot M81.0 AGE- RELATED OSTEOPOROSIS W/O CURRENT PAT 09/30/2017 MICHELET PILLAI N Ot R13.10 DYSPHAGIA, UNSPECIFIED 09/30/2017 MICHELET PILLAI N Ot Z08 ENCNTR FOR FOLLOW-UP EXAM AFTER TRTMT FO 09/30/2017 MICHELET PILLAI N Ot Z79.899 OTHER PENITENTIARY (CURRENT) DRUG THERAPY 09/30/2017 MICHELET PILLAI N Ot Z85.3 PERSONAL HISTORY OF MALIGNANT NEOPLASM O 09/30/2017 MICHELET PILLAI N Ot Z92.3 PERSONAL HISTORY OF IRRADIATION 10/03/2017 MICHELET PILLAI N Ot E03.9 HYPOTHYROIDISM, UNSPECIFIED 10/03/2017 MICHELET PILLAI N Ot M25.511 PAIN IN RIGHT SHOULDER 10/03/2017 MICHELET PILLAI N Ot M81.0 AGE- RELATED OSTEOPOROSIS W/O CURRENT PAT 10/03/2017 ROSAS CRUZYULIA N Ot R13.10 DYSPHAGIA, UNSPECIFIED 10/03/2017 ROSAS, CRUZYULIA N Ot Z08 ENCNTR FOR FOLLOW-UP EXAM AFTER TRTMT FO 10/03/2017 MICHELET PILLAI N Ot Z79.899 OTHER PENITENTIARY (CURRENT) DRUG THERAPY 10/03/2017 ROSAS, CRUZYULIA N Ot Z85.3 PERSONAL HISTORY OF MALIGNANT NEOPLASM O 10/03/2017 MICHELET PILLAI N Ot Z92.3 PERSONAL HISTORY OF IRRADIATION 11/10/2017 MICHELET PILLAI N Ot E03.9 HYPOTHYROIDISM, UNSPECIFIED 11/10/2017 MICHELET PILLAI N Ot M25.511 PAIN IN RIGHT SHOULDER 11/10/2017 MICHELET PILLAI N Ot M81.0 AGE- RELATED OSTEOPOROSIS W/O CURRENT PAT 11/10/2017 MICHELET PILLAI N Ot R13.10 DYSPHAGIA, UNSPECIFIED 11/10/2017 ROSAS CRUZYULIA N Ot Z08 ENCNTR FOR FOLLOW-UP EXAM AFTER TRTMT FO 11/10/2017 MICHELET PILLAI N Ot Z79.899 OTHER DIRECTOR EMBALMER (CURRENT) DRUG THERAPY 11/10/2017 ROSAS CRUZYULIA N Ot Z85.3 PERSONAL HISTORY OF MALIGNANT NEOPLASM O 11/10/2017 MICHELET PILLAI N Ot Z92.3 PERSONAL HISTORY OF IRRADIATION 11/11/2017 MICHELET PILLAI N Ot E03.9 HYPOTHYROIDISM, UNSPECIFIED 11/11/2017 ROSAS CRUZYULIA N Ot M25.511 PAIN IN RIGHT SHOULDER 11/11/2017 MICHELET PILLAI N Ot M81.0 AGE- RELATED OSTEOPOROSIS W/O CURRENT PAT 11/11/2017 MICHELET PILLAI N Ot R13.10 DYSPHAGIA, UNSPECIFIED 11/11/2017 ROSAS CRUZYULIA N Ot Z08 ENCNTR FOR FOLLOW-UP EXAM AFTER TRTMT FO 11/11/2017 MICHELET PILLAI N Ot Z79.899 OTHER DIRECTOR EMBALMER (CURRENT) DRUG THERAPY 11/11/2017 ROSAS CRUZYULIA N Ot Z85.3 PERSONAL HISTORY OF MALIGNANT NEOPLASM O 11/11/2017 MICHELET PILLAI N Ot Z92.3 PERSONAL HISTORY OF IRRADIATION 10/01/2018 MICHELET PILLAI N Ot E03.9 HYPOTHYROIDISM, UNSPECIFIED 10/01/2018 ROSAS CRUZYULIA N Ot M25.511 PAIN IN RIGHT SHOULDER 10/01/2018 ROSAS CRUZYULIA N Ot M81.0 AGE- RELATED OSTEOPOROSIS W/O CURRENT PAT 10/01/2018 ROSAS CRUZYULIA N Ot R13.10 DYSPHAGIA, UNSPECIFIED 10/01/2018 ROSAS CRUZYULIA N Ot Z08 ENCNTR FOR FOLLOW-UP EXAM AFTER TRTMT FO 10/01/2018 ROSAS CRUZYULIA N Ot Z79.899 OTHER PENITENTIARY (CURRENT) DRUG THERAPY 10/01/2018 MICHELET PILLAI N Ot Z85.3 PERSONAL HISTORY OF MALIGNANT NEOPLASM O 10/01/2018 MICHELET PLILAI N Ot Z92.3 PERSONAL HISTORY OF IRRADIATION 10/02/2018 MICHELET PILLAI N Ot E03.9 HYPOTHYROIDISM, UNSPECIFIED 10/02/2018 MICHELET PILLAI N Ot M25.511 PAIN IN RIGHT SHOULDER 10/02/2018 MICHELET PILLAI N Ot M81.0 AGE- RELATED OSTEOPOROSIS W/O CURRENT PAT 10/02/2018 MICHELET PILLAI N Ot R13.10 DYSPHAGIA, UNSPECIFIED 10/02/2018 MICHELET PILLAI N Ot Z08 ENCNTR FOR FOLLOW-UP EXAM AFTER TRTMT FO 10/02/2018 MICHELET PILLAI N Ot Z79.899 OTHER PENITENTIARY (CURRENT) DRUG THERAPY 10/02/2018 MICHELET PILLAI N Ot Z85.3 PERSONAL HISTORY OF MALIGNANT NEOPLASM O 10/02/2018 MICHELET PILLAI N Ot Z92.3 PERSONAL HISTORY OF IRRADIATION 11/16/2018 MICHELET PILLAI N Ot E03.9 HYPOTHYROIDISM, UNSPECIFIED 11/16/2018 MICHELET PILLAI N Ot M25.511 PAIN IN RIGHT SHOULDER 11/16/2018 MICHELET PILLAI N Ot M81.0 AGE- RELATED OSTEOPOROSIS W/O CURRENT PAT 11/16/2018 MICHELET PILLAI N Ot R13.10 DYSPHAGIA, UNSPECIFIED 11/16/2018 MICHELET PILLAI N Ot Z08 ENCNTR FOR FOLLOW-UP EXAM AFTER TRTMT FO 11/16/2018 MICHELET PILLAI N Ot Z79.899 OTHER DIRECTOR EMBALMER (CURRENT) DRUG THERAPY 11/16/2018 MICHELET PILLAI N Ot Z85.3 PERSONAL HISTORY OF MALIGNANT NEOPLASM O 11/16/2018 MICHELET PILLAI N Ot Z92.3 PERSONAL HISTORY OF IRRADIATION 11/17/2018 MICHELET PILLAI N Ot E03.9 HYPOTHYROIDISM, UNSPECIFIED 11/17/2018 MICHELET PILLAI N Ot M25.511 PAIN IN RIGHT SHOULDER 11/17/2018 MICHELET PILLAI N Ot M81.0 AGE- RELATED OSTEOPOROSIS W/O CURRENT PAT 11/17/2018 MICHELET PILLAI N Ot R13.10 DYSPHAGIA, UNSPECIFIED 11/17/2018 MICHELET PILLAI Ot Z08 ENCNTR FOR FOLLOW-UP EXAM AFTER TRTMT FO 11/17/2018 MICHELET PILLAI N Ot Z79.899 OTHER PENITENTIARY (CURRENT) DRUG THERAPY 11/17/2018 MICHELET PILLAI N Ot Z85.3 PERSONAL HISTORY OF MALIGNANT NEOPLASM O 11/17/2018 ROSAS, MICHELET Haile Ot Z92.3 PERSONAL HISTORY OF IRRADIATION 03/05/2019 ROSASMICHELET N Ot 174.9 MALIGN NEOPL BREAST NOS 03/05/2019 ROSAS, MICHELET N Ot 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 03/05/2019 ROSASMICHELET N Ot V15.3 HX OF IRRADIATION 03/05/2019 MICHELET PILLAI Ot V58.69 OTH MED,LT,CURRENT USE 03/05/2019 ROSASMICHELET N Ot 174.9 MALIGN NEOPL BREAST NOS 03/05/2019 ROSAS, MICHELET N Ot 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 03/05/2019 MICHELET PILLAI N Ot 244.9 HYPOTHYROIDISM NOS 03/05/2019 ROSASMICHELET Ot 733.00 OSTEOPOROSIS NOS 03/05/2019 ROSAS, MICHELET Haile Ot V15.3 HX OF IRRADIATION 03/05/2019 MICHELET PILLAI Ot V58.69 OTH MED,LT,CURRENT USE 03/05/2019 MICHELET PILLAI N Ot M81.0 AGE- RELATED OSTEOPOROSIS W/O CURRENT PAT 03/05/2019 MICHELET PILLAI Ot Z08 ENCNTR FOR FOLLOW-UP EXAM AFTER TRTMT FO 03/05/2019 MICHELET PILLAI Ot Z79.899 OTHER PENITENTIARY (CURRENT) DRUG THERAPY 03/05/2019 MICHELET PILLAI Ot Z85.3 PERSONAL HISTORY OF MALIGNANT NEOPLASM O 03/05/2019 MICHELET PILLAI N Ot Z92.3 PERSONAL HISTORY OF IRRADIATION 03/05/2019 MICHELET PILLAI N Ot M81.0 AGE- RELATED OSTEOPOROSIS W/O CURRENT PAT 03/05/2019 MICHELET PILLAI N Ot Z08 ENCNTR FOR FOLLOW-UP EXAM AFTER TRTMT FO 03/05/2019 MICHELET PILLAI N Ot Z79.899 OTHER DIRECTOR EMBALMER (CURRENT) DRUG THERAPY 03/05/2019 MICHELET PILLAI Ot Z85.3 PERSONAL HISTORY OF MALIGNANT NEOPLASM O 03/05/2019 MICHELET PILLAI Ot Z92.3 PERSONAL HISTORY OF IRRADIATION 03/05/2019 MICHELET PILLAI Ot E03.9 HYPOTHYROIDISM, UNSPECIFIED 03/05/2019 MICHELET PILLAI Ot M25.511 PAIN IN RIGHT SHOULDER 03/05/2019 MICHELET PILLAI Ot M81.0 AGE- RELATED OSTEOPOROSIS W/O CURRENT PAT 03/05/2019 MICHELET PILLAI Ot R13.10 DYSPHAGIA, UNSPECIFIED 03/05/2019 MICHELET PILLAI Ot Z08 ENCNTR FOR FOLLOW-UP EXAM AFTER TRTMT FO 03/05/2019 MICHELET PILLAI Ot Z79.899 OTHER DIRECTOR EMBALMER (CURRENT) DRUG THERAPY 03/05/2019 MICHELET PILLAI Ot Z85.3 PERSONAL HISTORY OF MALIGNANT NEOPLASM O 03/05/2019 MICHELET PILLAI Ot Z92.3 PERSONAL HISTORY OF IRRADIATION 03/07/2019 SELF ANGEL WARREN Ot M25.36 1 OTHER INSTABILITY, RIGHT KNEE 03/07/2019 SELF ANGEL WARREN Ot M25.46 1 EFFUSION, RIGHT KNEE 03/11/2019 SELF ANGEL WARREN Ot M25.36 1 OTHER INSTABILITY, RIGHT KNEE 03/11/2019 SELF ANGEL WARREN Ot M25.46 1 EFFUSION, RIGHT KNEE 03/15/2019 SELF ANGEL WARREN Ot M17.11 UNILATERAL PRIMARY OSTEOARTHRITIS, RIGHT 03/15/2019 SELF ANGEL WARREN Ot M85.66 1 OTHER CYST OF BONE, RIGHT LOWER LEG 03/15/2019 SELF ANGEL WARREN Ot 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, 03/17/2019 SELF ANGEL WARREN Ot M17.11 UNILATERAL PRIMARY OSTEOARTHRITIS, RIGHT 03/17/2019 SELF ANGEL WARREN Ot M85.66 1 OTHER CYST OF BONE, RIGHT LOWER LEG 03/17/2019 SELF ANGEL WARREN Ot 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, 03/26/2019 SELF ANGEL WARREN Ot M25.36 1 OTHER INSTABILITY, RIGHT KNEE 03/26/2019 SELF ANGEL WARREN Ot M25.46 1 EFFUSION, RIGHT KNEE 03/31/2019 SELF ANGEL WARREN Ot M17.11 UNILATERAL PRIMARY OSTEOARTHRITIS, RIGHT 03/31/2019 SELF ANGEL WARREN Ot M85.66 1 OTHER CYST OF BONE, RIGHT LOWER LEG 03/31/2019 SELF ANGEL WARREN Ot 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, 04/01/2019 SELF ANGEL WARREN Ot M25.36 1 OTHER INSTABILITY, RIGHT KNEE 04/01/2019 SELF ANGEL WARREN Ot M25.46 1 EFFUSION, RIGHT KNEE 04/05/2019 SELF ANGEL WARREN Ot M17.11 UNILATERAL PRIMARY OSTEOARTHRITIS, RIGHT 04/05/2019 SELF ANGEL WARREN Ot M85.66 1 OTHER CYST OF BONE, RIGHT LOWER LEG 04/05/2019 SELF ANGEL WARREN Ot 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, 08/17/2019 MICHELET PILLAI Ot E03.9 HYPOTHYROIDISM, UNSPECIFIED 08/17/2019 MICHELET PILLAI Ot M25.511 PAIN IN RIGHT SHOULDER 08/17/2019 MICHELET PILLAI Ot M81.0 AGE- RELATED OSTEOPOROSIS W/O CURRENT PAT 08/17/2019 MICHELET PILLAI Ot R13.10 DYSPHAGIA, UNSPECIFIED 08/17/2019 MICHELET PILLAI Ot Z08 ENCNTR FOR FOLLOW-UP EXAM AFTER TRTMT FO 08/17/2019 MICHELET PILLAI Ot Z79.899 OTHER PENITENTIARY (CURRENT) DRUG THERAPY 08/17/2019 MICHELET PILLAI Ot Z85.3 PERSONAL HISTORY OF MALIGNANT NEOPLASM O 08/17/2019 MICHELET PILLAI Ot Z92.3 PERSONAL HISTORY OF IRRADIATION 09/07/2019 MICHELET PILLAI Ot C50.912 MALIGNANT NEOPLASM OF UNSPECIFIED SITE O 09/07/2019 MICHELET PILLAI Ot M47.816 SPONDYLOSIS W/O MYELOPATHY OR RADICULOPA 09/07/2019 MICHELET PILLAI Ot Z79.899 OTHER PENITENTIARY (CURRENT) DRUG THERAPY 09/13/2019 MICHELET PILLAI Ot C50.912 MALIGNANT NEOPLASM OF UNSPECIFIED SITE O 09/13/2019 MICHELET PILLAI Ot M47.816 SPONDYLOSIS W/O MYELOPATHY OR RADICULOPA 09/13/2019 MICHELET PILLAI Ot Z79.899 OTHER DIRECTOR EMBALMER (CURRENT) DRUG THERAPY 04/07/2020 MICHELET PILLAI Ot M81.0 AGE- RELATED OSTEOPOROSIS W/O CURRENT PAT 04/07/2020 MICHELET PILLAI Ot Z08 ENCNTR FOR FOLLOW-UP EXAM AFTER TRTMT FO 04/07/2020 MICHELET PILLAI Ot Z79.899 OTHER DIRECTOR EMBALMER (CURRENT) DRUG THERAPY 04/07/2020 MICHELET PILLAI Ot Z85.3 PERSONAL HISTORY OF MALIGNANT NEOPLASM O 04/07/2020 MICHELET PILLAI Mic Ot Z92.3 PERSONAL HISTORY OF IRRADIATION 04/07/2020 MICHELET PILLAI Ot M81.0 AGE- RELATED OSTEOPOROSIS W/O CURRENT PAT 04/07/2020 MICHELET PILLAI Ot Z08 ENCNTR FOR FOLLOW-UP EXAM AFTER TRTMT FO 04/07/2020 MICHELET PILLAI Ot Z79.899 OTHER PENITENTIARY (CURRENT) DRUG THERAPY 04/07/2020 MICHELET PILLAI Mic Ot Z85.3 PERSONAL HISTORY OF MALIGNANT NEOPLASM O 04/07/2020 MICHELET PILLAI Mic Ot Z92.3 PERSONAL HISTORY OF IRRADIATION 04/07/2020 MICHELET PILLAI Mic Ot C50.912 MALIGNANT NEOPLASM OF UNSPECIFIED SITE O 04/07/2020 MICHELET PILLAI Mic Ot M47.816 SPONDYLOSIS W/O MYELOPATHY OR RADICULOPA 04/07/2020 MICHELET PILLAI Mic Ot Z79.899 OTHER DIRECTOR EMBALMER (CURRENT) DRUG THERAPY 04/07/2020 SELF ANGEL WARREN Ot M25.36 1 OTHER INSTABILITY, RIGHT KNEE 04/07/2020 SELF ANGEL WARREN Ot M25.46 1 EFFUSION, RIGHT KNEE 04/07/2020 SELF ANGEL WARREN Ot M17.11 UNILATERAL PRIMARY OSTEOARTHRITIS, RIGHT 04/07/2020 SELF ANGEL WARREN Ot M85.66 1 OTHER CYST OF BONE, RIGHT LOWER LEG 04/07/2020 SELF ANGEL WARREN Ot 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 0 FATTY (CHANGE OF) LIVER, NOT ELSEWHERE C 04/14/2020 PATEL LEON DO Ot R10. 30 LOWER ABDOMINAL PAIN, UNSPECIFIED 04/14/2020 PATEL LEON DO Ot Z79.890 HORMONE REPLACEMENT THERAPY 04/14/2020 PATEL LEON DO Ot Z79.899 OTHER PENITENTIARY (CURRENT) DRUG THERAPY 04/14/2020 PATEL LEON DO Ot Z88. 0 ALLERGY STATUS TO PENICILLIN 04/14/2020 PATEL LEON DO Ot Z88. 2 ALLERGY STATUS TO SULFONAMIDES STATUS 04/14/2020 PATEL LEON DO Ot Z96.643 PRESENCE OF ARTIFICIAL HIP JOINT, BILATE Procedures There is no data. Results Test Result Range LIPID PANEL - 03/04/19 09:19 CHOLESTEROL, TOTAL 204 mg/dL <200 HDL CHOLESTEROL 63 mg/dL >50 TRIGLYCERIDES 173 mg/dL <150 LDL-CHOLESTEROL 112 mg/dL (calc) NRG CHOL/HDLC RATIO 3.2 (calc) <5.0 NON HDL CHOLESTEROL 141 mg/dL (calc) <13 0 CMP - 03/04/19 09:19 GLUCOSE 89 mg/dL 65-99 UREA NITROGEN (BUN) 14 mg/dL 7-25 CREATININE 0.78 mg/dL 0.60-0.88 eGFR NON-AFR. CYPRIOT 70 mL/min/1.73m2 > OR = 60 eGFR 81 mL/min/1.73m2 > OR = 60 BUN/CREATININE RATIO NOT APPLICABLE (calc) 6-22 SODIUM 141 mmol/L 135-146 POTASSIUM 4.2 mmol/L 3.5-5.3 CHLORIDE 105 mmol/L 98-110 CARBON DIOXIDE 29 mmol/L 20-32 CALCIUM 9.6 mg/dL 8.6-10.4 PROTEIN, TOTAL 6.4 g/dL 6.1-8.1 ALBUMIN 4.3 g/dL 3.6-5.1 GLOBULIN 2.1 g/dL (calc) 1.9-3.7 ALBUMIN/GLOBULIN RATIO 2.0 (calc) 1.0-2. 5 BILIRUBIN, TOTAL 0.7 mg/dL 0.2-1.2 ALKALINE PHOSPHATASE 58 U/L 33-130 AST 17 U/L 10-35 ALT 12 U/L 6-29 TSH - 09/07/19 09:42 TSH 1.53 mIU/L 0.40-4.50 CMP - 03/13/20 11:03 GLUCOSE 92 mg/dL 65-99 UREA NITROGEN (BUN) 19 mg/dL 7-25 CREATININE 0.81 mg/dL 0.60-0.88 eGFR NON-AFR. CYPRIOT 67 mL/min/1.73m2 > OR = 60 eGFR 77 mL/min/1.73m2 > OR = 60 BUN/CREATININE RATIO NOT APPLICABLE (calc) 6-22 SODIUM 141 mmol/L 135-146 POTASSIUM 4.2 mmol/L 3.5-5.3 CHLORIDE 104 mmol/L 98-110 CARBON DIOXIDE 29 mmol/L 20-32 CALCIUM 9.4 mg/dL 8.6-10.4 PROTEIN, TOTAL 6.1 g/dL 6.1-8.1 ALBUMIN 4.2 g/dL 3.6-5.1 GLOBULIN 1.9 g/dL (calc) 1.9-3.7 ALBUMIN/GLOBULIN RATIO 2.2 (calc) 1.0-2. 5 BILIRUBIN, TOTAL 0.6 mg/dL 0.2-1.2 ALKALINE PHOSPHATASE 60 U/L 37-153 AST 16 U/L 10-35 ALT 12 U/L 6-29 TSH - 03/13/20 11:03 TSH 1.12 mIU/L 0.40-4.50 Complete urinalysis with reflex to cultu re - 04/09/20 11:29 Urine color determination PALE YELLOW N RG Urine clarity determination CLEAR NR G Urine pH measurement by test strip 6.0 5-9 Specific gravity of urine by test strip <= 1.016-1.022 Urine protein assay by test strip, semi-quantitative NEGATIVE NEGATIVE Urine glucose detection by automated test strip NE GATIVE NEGATIVE Erythrocytes detection in urine sediment by light micr oscopy NEGATIVE NEGATIVE Urine ketones detection by automated test strip NE GATIVE NEGATIVE Urine nitrite detection by test strip NEGATIVE NEGATIVE Urine total bilirubin detection by test strip NEGA TIVE NEGATIVE Urine urobilinogen measurement by automated test strip (mass/volume) 0.2 mg/dL < = 1.0 Urine leukocyte esterase detection by dipstick NEG ATIVE NEGATIVE Automated urine sediment erythrocyte cou nt by microscopy (number/high power field) NONE NRG Automated urine sediment leukocyte count by microscopy (number/high power field) RARE NRG Bacteria detection in urine sediment by light microsco py NEGATIVE NRG Squamous epithelial cells detection in u rine sediment by light microscopy 0-2 NRG Crystals detection in urine sediment by light microsco py NONE NRG Casts detection in urine sediment by light microscopy NONE NRG Mucus detection in urine sediment by light microscopy NEGATIVE NRG Complete urinalysis with reflex to culture NO NRG Complete blood count (CBC) with automate d white blood cell (WBC) differential - 04/09/20 11:35 Blood leukocytes automated count (number/volume) 9.0 10*3/uL 4.3-11.0 Blood erythrocytes automated count (number/volume) 4.36 10*6/uL 4.35-5.85 Venous blood hemoglobin measurement (mass/volume) 14.1 g/dL 11.5-16.0 Blood hematocrit (volume fraction) 42 % 35-52 Automated erythrocyte mean corpuscular volume 97 [ foz_us] 80-99 Automated erythrocyte mean corpuscular h emoglobin (mass per erythrocyte) 32 pg 25-34 Automated erythrocyte mean corpuscular h emoglobin concentration measurement (mass/volume) 33 g/dL 32-36 Automated erythrocyte distribution width ratio 11. 8 % 10.0- 14.5 Automated blood platelet count (count/volume) 216 10*3/uL 130-400 Automated blood platelet mean volume measurement 10.5 [foz_us] 7.4-10.4 Automated blood neutrophils/100 leukocytes 74 % 42-75 Automated blood lymphocytes/100 leukocytes 19 % 12-44 Blood monocytes/100 leukocytes 5 % 0-12 Automated blood eosinophils/100 leukocytes 1 % 0-10 Automated blood basophils/100 leukocytes 1 % 0-10 Blood neutrophils automated count (number/volume) 6.7 10*3 1.8-7.8 Blood lymphocytes automated count (number/volume) 1.7 10*3 1.0-4.0 Blood monocytes automated count (number/volume) 0. 5 10*3 0.0-1.0 Automated eosinophil count 0.1 10*3/uL 0 .0-0.3 Automated blood basophil count (count/volume) 0.1 10*3/uL 0.0-0.1 Comprehensive metabolic panel - 04/09/20 11:35 Serum or plasma sodium measurement (moles/volume) 139 mmol/L 135-145 Serum or plasma potassium measurement (moles/volume) 4.4 mmol/L 3.6-5.0 Serum or plasma chloride measurement (moles/volume) 101 mmol/L 98-107 Carbon dioxide 25 mmol/L 21-32 Serum or plasma anion gap determination (moles/volume) 13 mmol/L 5-14 Serum or plasma urea nitrogen measurement (mass/volume ) 15 mg/dL 7-18 Serum or plasma creatinine measurement (mass/volume) 0.81 mg/dL 0.60-1.30 Serum or plasma urea nitrogen/creatinine mass ratio 19 NRG Serum or plasma creatinine measurement w ith calculation of estimated glomerular filtration rate > NRG Serum or plasma glucose measurement (mass/volume) 101 mg/dL 70-105 Serum or plasma calcium measurement (mass/volume) 9.5 mg/dL 8.5-10.1 Serum or plasma total bilirubin measurement (mass/volu me) 0.5 mg/dL 0.1-1.0 Serum or plasma alkaline phosphatase moira surement (enzymatic activity/volume) 73 U/L 40-136 Serum or plasma aspartate aminotransfera se measurement (enzymatic activity/volume) 27 U/L 5-34 Serum or plasma alanine aminotransferase measurement (enzymatic activity/volume) 11 U/L 0-55 Serum or plasma protein measurement (mass/volume) 6.4 g/dL 6.4-8.2 Serum or plasma albumin measurement (mass/volume) 4.1 g/dL 3.2-4.5 CALCIUM CORRECTED 9.4 mg/dL 8.5-10.1 Serum or plasma amylase measurement (enz ymatic activity/volume) - 04/09/20 11:35 Serum or plasma amylase measurement (enzymatic activit y/volume) 34 U/L 25-125 Lipase - 04/09/20 11:35 Lipase 26 U/L 8-78 Encounters ACCT No. Visit Date/Time Discharge Status Pt. Type Provider Facility Loc./Unit Complaint [id number] 04/11/2020 10:30:00 04/11/2020 23:59: 59 [facility] [id number] 03/13/2020 10:00:00 Document Registration [id number] 09/07/2019 09:30:00 Document Registration [id number] 03/04/2019 09:30:00 Document Registration [id number] 04/09/2020 11:17:00 13:35:00 DIS Outpatient PATEL LEON DO [facility] ER FS ABD PAIN [id number] 04/07/2020 14:22:00 23:59:59 CLS Outpatient SELF ANGEL WARREN [facility] RAD FS R10.84 [id number] 08/17/2019 10:12:00 23:59:59 CLS Outpatient MICHELET PILLAI V [facility] ONC [id number] 03/10/2019 10:11:00 23:59:59 CLS Outpatient SELF ANGEL WARREN [facility] RAD FS RT [address] [id number] 03/05/2019 15:03:00 23:59:59 CLS Outpatient SELF ANGEL WARREN [facility] RAD FS M25.361 [id number] 08/18/2018 09:47:00 019 00:01:00 DIS Outpatient MICHELET PILLAI Mic Kim [facility] ONC [id number] 08/12/2017 11:00:00 018 00:01:00 DIS Outpatient MICHELET PILLAI Mic Kim [facility] ONC [id number] 08/06/2016 11:23:00 016 23:59:59 CLS Outpatient MICHELET PILLAI Mic Kim [facility] FS [id number] 08/08/2015 12:50:00 015 23:59:59 CLS Outpatient MICHELET PILLAI Mic Kim [facility] FS [id number] 09/06/2014 10:52:00 014 23:59:59 CLS Outpatient MICHELET PILLAI Mic Kim [facility] FS [id number] 03/29/2014 13:04:00 014 23:59:59 CLS Outpatient MICHELET PILLAI Mic Kim [facility] FS [id number] 08/24/2013 17:08:00 013 23:59:59 CLS Outpatient [id number] 02/23/2013 13:25:00 013 23:59:59 CLS Outpatient
--- OUTSIDE RECORDS SUMMARY | 2020-04-15 14:38 | XMS REPORT ---
Author Author Rocio Petit Organization [facility] Address [address] [place] [address] Care Team Providers Care Italian Tutor Name Role Phone Lino Petit Unavailable PROBLEMS Type Condition ICD9-CM Code [id number] Code Onset Dates Condition S tatus SNOMED Code Problem Solar urticaria L56.3 Active [id number] ALLERGIES No Information ENCOUNTERS Encounter Location Date Diagnosis [facility] [address] in [facility] [address] [place], [place] [id number] Apr, [facility] [address] in [facility] [address] [place], [place] [id number] Mar, [facility] [address] [facility] [address] [place], [place] [phone] Mar, Solar urticaria L56.3 and 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
--- OUTSIDE RECORDS SUMMARY | 2020-04-15 14:38 | XMS REPORT ---
Author Author Rocio Petit Organization [facility] Address 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 297013563 Problem Solar urticaria L56.3 Active 1034 7006 ALLERGIES No Information ENCOUNTERS Encounter Location Date Diagnosis [facility] [address] [id number] Apr, [facility] [address] [id number] Apr, [facility] [address] [id number] Apr, Squamous cell carcinoma in s itu of skin of left forearm D04.62 [facility] [address] [id number] Mar, [facility] [address] [id number] Mar, Solar urticaria L56.3 and 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
--- OUTSIDE RECORDS SUMMARY | 2020-04-15 14:38 | XMS REPORT ---
Author Author Rocio Petit Organization [facility] Address [address] 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 768123585 Problem BCC (basal cell carcinoma), back C44.519 Active 211112869 Problem Solar urticaria L56.3 Active 2893 0716 ALLERGIES No Known Allergies ENCOUNTERS Encounter Location Date Diagnosis [facility] [address] [facility] in [address] [id number] Jun, [facility] [address] [facility] in [address] [id number] Jan, [facility] [address] [place] [address] [id number] Jan, BCC (basal cell carcinoma), back C44.519 [facility] [address] [place] [id number] Dec, [facility] [address] [place] [address] [id number] Dec, Benign neoplasm of skin of t runk, except scrotum D23.5 ; Personal history of other malignant neoplasm of skin Z85.828 ; Encounter for screening for malignant neoplasm of skin Z12.83 ; Actinic keratosis L57.0 ; Neoplasm of uncertain behavior of skin D48.5 ; Seborrheic keratoses L82.1 and Lentigo L81.4 [facility] [address] [facility] in [address] [id number] May, Squamous cell carcinoma in s itu of skin of left forearm D04.62 [facility] [address] in [facility] [address] [place] [id number] Apr, [facility] [address] in [facility] [address] [place] [id number] Apr, [facility] [address] in [facility] [address] [place] [id number] Apr, Squamous cell carcinoma in s itu of skin of left forearm D04.62 [facility] [address] [id number] Mar, [facility] [address] [id number] Mar, Solar urticaria L56.3 and 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 IMMUNIZATIONS No Known Immunizations SOCIAL HISTORY Never Assessed REASON FOR VISIT Left mid back; Superficial multifocal basal cell carcinoma, transected PLAN OF CARE Activity Details Follow Up 10 d Reason: Pending Test Surgical to [facility] Pathology VITAL SIGNS Height 5 ft 6 in in 2019-01-14 Weight 140 lbs 2019-01-14 BMI 22.59 kg/m2 2019-01-14 MEDICATIONS Medication Instructions Dosage Frequency Start Date End Date Duration S tatus Doxycycline Hyclate 100 MG Orally Twice a day 1 capsule 12h J 2017 7 days Active ZyrTEC Active Lovastatin Active Celebrex Active Alendronate Sodium Activ e Fluorouracil 5 % Externally apply along suture line on fo rearm daily for 3 wks 1 application to affected area Apr, 21 days Active Levothyroxine Sodium Act rachell Calcium Active RESULTS No Results PROCEDURES Procedure [...]
--- OUTSIDE RECORDS SUMMARY | 2020-04-15 14:38 | XMS REPORT ---
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, with unspecified presence of clinical manifestation I70.203 Active 362517102254655 Problem Arthritis of back M47.9 Active 37 0301320 Problem Hyperlipidemia, mixed E78.2 Active 824034621 Problem Allergic rhinitis J30.9 Active 61 409745 Problem Age-related osteoporosis without current pathological fracture M81.0 Active 667762818 Problem Hyperlipidemia E78.5 Active 96855 004 ALLERGIES No Information ENCOUNTERS Encounter Location Date Diagnosis [address] [id number] [address] Sep, [address] [id number] [address] 10 Mar, 2020 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, with unspecified presence of clinical manifestation I70.203 ; Hyperlipidemia E78.5 ; Hypothyroidism, unspecified type E03.9 and Arthritis of back M47.[address] [id number] [address] 08 Mar, 2020 Hyperlipidemia, mixed E78.2 and Hypothyroidism, unspecified type E03.[address] [id number] [address] Dec, [address] [id number] [address] Nov, Encounter for Medicare annua l wellness exam Z00.00 and Screening mammogram, encounter for Z12.31 [facility] GODINEZ [address] [id number] [place] [address] Oct, HARLEY GODINEZ [address] [id number] [place] [address] Sep, Encounter for Medicare annua l wellness exam Z00.00 ; Atherosclerosis of diomede artery of both lower extremities, with unspecified presence of clinical manifestation I70.203 ; Hypothyroidism, unspecified type E03.9 ; Hyperlipidemia, mixed E78.2 ; Dizziness R42 ; Toenail fungus B35.1 and Screening mammogram, encounter for Z12.31 [facility] GODINEZ [address] [id number] [place] [address] Sep, Hyperlipidemia E78.5 and Hyp othyroidism, unspecified type E03.9 [facility] [address] [id number] [place] [address] Jul, [facility] [address] [id number] [place] [address] Jul, Dizziness R42 [facility] [address] [id number] [place] [address] Jul, Dizziness R42 [facility] GODINEZ [address] [id number] [place] [address] Jun, [facility] [address] [id number] [place] [address] Jun, Acute frontal sinusitis J01. 10 [facility] [address] [id number] [place] [address] Apr, [facility] GODINEZ [address] [id number] [place] [address] Apr, [facility] [address] [id number] [place] [address] Mar, Dizziness R42 [facility] [address] [id number] [place] [address] Mar, Hyperlipidemia E78.5 ; Hypot hyroidism, unspecified type E03.9 and Other type of osteoarthritis, unspecified site M19.90 [facility] [address] [id number] [place] [address] Mar, [facility] [address] [id number] [place] [address] February, [facility] [address] [id number] [place] [address] February, Right knee gives way M25.361 [facility] [address] [id number] [place] [address] February, Hypothyroidism, unspecified type E03.9 and Hyperlipidemia, mixed E78.2 [facility] GODINEZ [address] [id number] [place] [address] February, Dizziness R42 [facility] FELDMAN [address] [id number] [place] [address] Jan, [facility] GODINEZ [address] [id number] [place] [address] Jan, [facility] GODINEZ [address] [id number] [place] [address] Jan, [facility] GOD[facility] [address] [id number] [place] [address] Jan, [facility] [address] [id number] [place] [address] Dec, Acute frontal sinusitis, rec urrence not specified J01.10 and Acute URI J06.9 [facility] [id number] [place] [address] Dec, Hypothyroidism, unspecified type E03.9 and Hyperlipidemia, mixed E78.2 [facility] GODINE[facility] [address] [id number] [place] [address] Dec, [facility] [address] [id number] [place] [address] Dec, [facility] GOD[facility] [address] [id number] [place] [address] Dec, [facility] GOD[facility] [address] [id number] [place] [address] Nov, Vertigo R42 [facility] GODINE[facility] [address] [id number] [place] [address] Nov, [facility] GASTON GODINEZ [address] [id number] [place] [address] Nov, Screening mammogram, encount er for Z12.31 IMMUNIZATIONS No Known Immunizations SOCIAL HISTORY Never Assessed REASON FOR VISIT Reclast injection PLAN OF CARE VITAL SIGNS MEDICATIONS Unknown [...]
[2020-04-15] MEDS ORDERED: HOLD METFORMIN - RECEIVED CONTRAST 20 ML VIAL IV SCH (15:30)
[2020-04-15] MEDS ORDERED: CATHETER FLUSH 10 ML SYR IV PRN (15:30)
[2020-04-15] MEDS ORDERED: NS 100 ML (IVPB) BAG IV ONE (15:30)
[2020-04-15] MEDS ORDERED: IOHEXOL 350 MG/ML 100 ML (OMNIPAQUE 350) VIAL IV ONE (15:30)
[2020-04-15 15:34] LABS: BILIRUBIN,URINE NEGATIVE (NEGATIVE); CLARITY,URINE CLEAR; COLOR,URINE YELLOW; GLUCOSE, URINE (UA) NEGATIVE (NEGATIVE); KETONES,URINE NEGATIVE (NEGATIVE); LEUKOCYTE ESTERASE ,URINE NEGATIVE (NEGATIVE); NITRITE,URINE NEGATIVE (NEGATIVE); PH,URINE 6.5 (5-9); PROTEIN,URINE NEGATIVE (NEGATIVE); SQUAMOUS EPITHELIAL CELL,UR RARE /HPF
[2020-04-15 15:47] LABS: BASOPHILS # (AUTO) 0.1 10^3/uL (0.0-0.1); BASOPHILS % (AUTO) 1 % (0-10); EOSINOPHILS # (AUTO) 0.1 10^3/uL (0.0-0.3); EOSINOPHILS % (AUTO) 1 % (0-10); HEMATOCRIT 42 % (35-52); HEMOGLOBIN 14.4 G/DL (11.5-16.0); LYMPHOCYTES # (AUTO) 1.6 X 10^3 (1.0-4.0); LYMPHOCYTES % (AUTO) 23 % (12-44); MEAN CORPUSCULAR HEMOGLOBIN 33 PG (25-34); MEAN CORPUSCULAR HGB CONC 34 G/DL (32-36); MEAN CORPUSCULAR VOLUME 96 FL (80-99); MEAN PLATELET VOLUME 10.2 FL (7.4-10.4); MONOCYTES # (AUTO) 0.3 X 10^3 (0.0-1.0); MONOCYTES % (AUTO) 5 % (0-12); NEUTROPHILS # (AUTO) 4.9 X 10^3 (1.8-7.8); NEUTROPHILS % (AUTO) 71 % (42-75); PLATELET COUNT 223 10^3/uL (130-400); RED CELL DISTRIBUTION WIDTH 11.6 % (10.0-14.5); WHITE BLOOD COUNT 6.9 10^3/uL (4.3-11.0)
[2020-04-15 16:04] LABS: POTASSIUM 3.9 MMOL/L (3.6-5.0); SODIUM 142 MMOL/L (135-145)
[2020-04-15 16:05] LABS: ALANINE AMINOTRANSFERASE 14 U/L (0-55); ALBUMIN 4.2 GM/DL (3.2-4.5); ALKALINE PHOSPHATASE 68 U/L (40-136); BILIRUBIN,TOTAL 0.3 MG/DL (0.1-1.0); BUN/CREATININE RATIO 19; CALCIUM 9.5 MG/DL (8.5-10.1); CARBON DIOXIDE 25 MMOL/L (21-32); CHLORIDE 105 MMOL/L (98-107); GFR ESTIMATED > 60; GLUCOSE 94 MG/DL (70-105); LIPASE 33 U/L (8-78); TOTAL PROTEIN 6.1 GM/DL (6.4-8.2)
--- NOTE | 2020-04-15 16:17 | Diagnostic Imaging Report ---
PROCEDURE: CT abdomen and pelvis with contrast. TECHNIQUE: Multiple contiguous axial images were obtained through the abdomen and pelvis after administration of intravenous contrast. Auto Exposure Controls were utilized during the CT exam to meet ALARA standards for radiation dose reduction. DATE: April 15, 2020. COMPARISON: CT of the abdomen and pelvis April 09, 2020. INDICATION: 84-year-old female, abdominal pain for one week. History of left breast cancer. FINDINGS: There are mild linear opacities in the right lower lobe and left lower lobe consistent with mild atelectasis and/or scarring. The heart is not enlarged. There is no identified pericardial effusion. There are atherosclerotic calcifications. The liver is unremarkable in size and contour. There is a low-attenuation lesion in the left lobe of the liver on axial image 25 which measures 3.4 cm in diameter with internal attenuation diagnostic for a benign cyst. The main, right and left portal veins are patent. The gallbladder is unremarkable. There is no intrahepatic or extrahepatic bile duct dilation. The main pancreatic duct is not abnormally dilated. Unremarkable appearance of the pancreatic parenchyma. The spleen is normal in size. The adrenal glands are unremarkable. There is an area of left renal cortical scarring. The urinary collecting systems are not distended. There is limited evaluation of the distal ureters, urinary bladder and pelvis given prominent streak artifact associated with both hip prostheses. The intestinal tract is not distended. There is no identified finding to specifically suggest acute appendicitis. There is no free intraperitoneal air. There is no drainable fluid collection. There is no sizable volume free pelvic fluid. There is no identified abnormally enlarged lymph node in the abdomen or pelvis which meets CT size criteria for adenopathy. There are bilateral total hip prostheses. There are degenerative changes of the spine. There is no identified acute bony abnormality. IMPRESSION: CT abdomen and pelvis: 1. No identified acute abnormality in the abdomen or pelvis. Dictated by: Dictated on workstation # [id number]
--- NOTE | 2020-04-15 17:04 | ED Abdominal Pain ---
General Chief Complaint: Abdominal/GI Problems Stated Complaint: STOMACH PAIN, HEADACHE History of Present Illness Date Seen by Provider: Apr 15, 2020 Time Seen by Provider: 14:39 Initial Comments The patient is an 84-year-old female with a history of hyperlipidemia and hypothyroidism as well as some degree of dementia who presents for evaluation of multiple weeks of vague lower abdominal discomfort. Pain localizes to the bilateral lower quadrants of the abdomen and is described as crampy and intermittent. Nothing seems to make it better or worse per the patient. It is nonradiating. She denies any associated symptoms and specifically denies fevers, nausea or vomiting, decreased food or fluid intake, upper respiratory congestion/rhinorrhea, cough, shortness of breath or chest pain of any kind, flank pain, back pain, dysuria or hematuria, changes in bowel habits. Patient was seen here about 2 weeks ago for the same discomfort at which time labs and imaging were without evidence of acute process. Patient was subsequently discharged to follow up; no outpatient follow-up hasn't occurred yet. Patient states that discomfort isn't worse but simply isn't better so her friend drove her back to the emergency department for reevaluation. Allergies and Home Medications Allergies Coded Allergies: Penicillins (Unverified Adverse Reaction, Unknown, 04/09/20) Sulfa (Sulfonamide Antibiotics) (Unverified Adverse Reaction, Unknown, 04/09/20) Patient Home Medication List Home Medication List Reviewed: Yes Review of Systems Review of Systems Constitutional: see HPI All Other Systems Reviewed Negative Unless Noted: Yes (Negative excepted noted.) Past Arcixsl-Wgfiru-Ofrzkc Hx Past Med/Social Hx: Reviewed Nursing Past Med/Soc Hx Patient Social History Former Smoker, Quit: Oct 06, 1988 Recent Hopitalizations: No Seasonal Allergies Seasonal Allergies: Yes (allergic rhinitis) Past Medical History Surgeries: Yes (L Lumpectomy, L&R THR, L eye cataract and macular hole) Breast, Joint Replacement, Orthopedic, Tonsillectomy Respiratory: No Cardiac: Yes (Rheumatic fever 1950) High Cholesterol, Rheumatic Fever Neurological: Yes Dementia Genitourinary: No Gastrointestinal: Yes Gastroesophageal Reflux Musculoskeletal: Yes (Spinal stenosis/spondylosis) Osteoporosis, Arthritis, Chronic Back Pain Endocrine: Yes Hypothyroidsim HEENT: No Cancer: Yes (Malignant neoplasm L breast, 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 oz. kg; 21.00 BMI Method: General Appearance: no apparent distress Exam Comments This is an elderly female appearing nontoxic and in no acute distress. Head is normocephalic and atraumatic. Neck is supple and nontender. Oropharynx is moist. Lungs are clear to auscultation at all stations. There is a normal S1 and S2 without rubs or gallops and capillary refill is appropriate, less than 2 seconds globally. Abdomen is soft, nontender and nondistended. Skin is warm and dry without cyanosis, clubbing or edema. Psychiatrically, the patient demonstrates appropriate mood and affect and is alert. Focused Exam Lactate Level 04/15/20 15:35: Lactic Acid Level 0.81 Lactic Acid Level Laboratory Tests Test 04/15/20 15:35 Lactic Acid Level 0.81 MMOL/L (0.50-2.00) Progress/Results/Core Measures Results/Orders Lab Results Laboratory Tests Test 04/15/20 14:35 04/15/20 15:35 Range/Units Urine Color YELLOW Urine Clarity CLEAR Urine pH 6.5 5-9 Urine Specific [place] <1.005 1.016-1.022 Urine Protein NEGATIVE NEGATIVE Urine Glucose (UA) NEGATIVE NEGATIVE Urine Ketones NEGATIVE NEGATIVE Urine Nitrite NEGATIVE NEGATIVE Urine Bilirubin NEGATIVE NEGATIVE Urine Urobilinogen 0.2 < = 1.0 MG/DL Urine Leukocyte Esterase NEGATIVE NEGATIVE Urine RBC (Auto) NEGATIVE NEGATIVE Urine RBC NONE /HPF Urine WBC NONE /HPF Urine Squamous Epithelial Cells RARE /HPF Urine Crystals NONE /LPF Urine Bacteria NONE /HPF Urine Casts NONE /LPF Urine Mucus NEGATIVE /LPF Urine Culture Indicated NO White Blood Count 6.9 4.3-11.0 10^3/uL Red Blood Count 4.43 4.35-5.85 10^6/uL Hemoglobin 14.4 11.5-16.0 G/DL Hematocrit 42 35-52 % Mean Corpuscular Volume 96 80-99 FL Mean Corpuscular Hemoglobin 33 25-34 PG Mean Corpuscular Hemoglobin Concent 34 32-36 G/DL Red Cell Distribution Width 11.6 10.0-14.5 % Platelet Count 223 130-400 10^3/uL Mean Platelet Volume 10.2 7.4-10.4 FL Neutrophils (%) (Auto) 71 42-75 % Lymphocytes (%) (Auto) 23 12-44 % Monocytes (%) (Auto) 5 0-12 % Eosinophils (%) (Auto) 1 0-10 % Basophils (%) (Auto) 1 0-10 % Neutrophils # (Auto) 4.9 1.8-7.8 X 10^3 Lymphocytes # (Auto) 1.6 1.0-4.0 X 10^3 Monocytes # (Auto) 0.3 0.0-1.0 X 10^3 Eosinophils # (Auto) 0.1 0.0-0.3 10^3/uL Basophils # (Auto) 0.1 0.0-0.1 10^3/uL Sodium Level 142 135-145 MMOL/L Potassium Level 3.9 3.6-5.0 MMOL/L Chloride Level 105 98-107 MMOL/L Carbon Dioxide Level 25 21-32 MMOL/L Anion Gap 12 5-14 MMOL/L Blood Urea Nitrogen 15 7-18 MG/DL Creatinine 0.80 0.60-1.30 MG/DL Estimat Glomerular Filtration Rate > 60 BUN/Creatinine Ratio 19 Glucose Level 94 70-105 MG/DL Lactic Acid Level 0.81 0.50-2.00 MMOL/L Calcium Level 9.5 8.5-10.1 MG/DL Corrected Calcium 9.3 8.5-10.1 MG/DL Total Bilirubin 0.3 0.1-1.0 MG/DL Aspartate Amino Transf (AST/SGOT) 19 5-34 U/L Alanine Aminotransferase (ALT/SGPT) 14 0-55 U/L Alkaline Phosphatase 68 40-136 U/L Troponin I < 0.30 <0.30 NG/ML Total Protein 6.1 L 6.4-8.2 GM/DL Albumin 4.2 3.2-4.5 GM/DL Lipase 33 8-78 U/L My Orders Orders - KAREN SHAW MD Cbc With Automated Diff (04/15/20 15:23) Comprehensive Metabolic Panel (04/15/20 15:23) Troponin I Fs (04/15/20 15:23) Ekg Tracing (04/15/20 15:23) Lipase (04/15/20 15:23) Ua Culture If Indicated (04/15/20 15:23) Lactic Acid Analyzer (04/15/20 15:23) Ct Abdomen/Pelvis W (04/15/20 15:24) Iohexol Injection (Omnipaque 350 Mg/Ml 1 (04/15/20 15:30) Received Contrast (Hold Metformin- Contr (04/15/20 15:30) Sodium Chloride Flush (Catheter Flush Sy (04/15/20 15:30) Ns (Ivpb) (Sodium Chloride 0.9% Ivpb Bag (04/15/20 15:30) Medications Given in ED Current Medications Medications Dose Ordered Sig/Tello Route Start Time Stop Time Status Last Admin Dose Admin Iohexol 100 ml ONCE ONCE IV 04/15/20 15:30 04/15/20 15:31 DC 04/15/20 15:56 100 ML Sodium Chloride 10 ml NEEDED PRN IV 04/15/20 15:30 04/15/20 15:56 10 ML Sodium Chloride 100 ml ONCE ONCE IV 04/15/20 15:30 04/15/20 15:31 DC 04/15/20 15:56 100 ML Progress Progress Note : Time: 17:05 Progress Note Elderly female who presents for reevaluation of lower abdominal discomfort which has been present intermittently for at least the last several weeks. Patient is in absolutely no acute distress. Clinical examination reassuring. No reproducible abdominal tenderness by exam. Workup 2 weeks ago was unremarkable and reassuring. We will repeat workup today and if unremarkable and reassuring, anticipate discharge with instructions to follow-up closely with her adjunct business instructor. This is discussed with the patient and her DPOA who are in agreement. 1615: No acute process by labs or imaging. Patient is resting comfortably in no acute distress upon reassessment. She verbalizes desire to go home. There is no evidence of emergency condition at this time. Patient already has a adjunct business instructor and I discussed with her and with her caregiver that she needed to follow-up with her GI doctor, ideally within the next 1 week, in the office, for reevaluation and further care. Caregiver verbalized that she would make the appointment. The patient understands that if she feels worse is that of better or develops other new symptoms of concern that she should return to the emergency department right away for reevaluation. All questions are answered. Comment Sinus rhythm, rate 65, no acute ST elevation or depression, MI 133, QRS 79, QTC 409, EP interpretation. Diagnostic Imaging Comments CT ABDOMEN/PELVIS W PROCEDURE: CT abdomen and pelvis with contrast. TECHNIQUE: Multiple contiguous axial images were obtained through the abdomen and pelvis after administration of intravenous contrast. Auto Exposure Controls were utilized during the CT exam to meet ALARA standards for radiation dose reduction. DATE: April 15, 2020. COMPARISON: CT of the abdomen and pelvis April 09, 2020. INDICATION: 84-year-old female, abdominal pain for one week. History of left breast cancer. FINDINGS: There are mild linear opacities in the right lower lobe and left lower lobe consistent with mild atelectasis and/or scarring. The heart is not enlarged. There is no identified pericardial effusion. There are atherosclerotic calcifications. The liver is unremarkable in size and contour. There is a low-attenuation lesion in the left lobe of the liver on axial image 25 which measures 3.4 cm in diameter with internal attenuation diagnostic for a benign cyst. The main, right and left portal veins are patent. The gallbladder is unremarkable. There is no intrahepatic or extrahepatic bile duct dilation. The main pancreatic duct is not abnormally dilated. Unremarkable appearance of the pancreatic parenchyma. The spleen is normal in size. The adrenal glands are unremarkable. There is an area of left renal cortical scarring. The urinary collecting systems are not distended. There is limited evaluation of the distal ureters, urinary bladder and pelvis given prominent streak artifact associated with both hip prostheses. The intestinal tract is not distended. There is no identified finding to specifically suggest acute appendicitis. There is no free intraperitoneal air. There is no drainable fluid collection. There is no sizable volume free pelvic fluid. There is no identified abnormally enlarged lymph node in the abdomen or pelvis which meets CT size criteria for adenopathy. There are bilateral total hip prostheses. There are degenerative changes of the spine. There is no identified acute bony abnormality. IMPRESSION: CT abdomen and pelvis: 1. No identified acute abnormality in the abdomen or pelvis. Dictated on workstation # [id number] Departure Impression Primary Impression: Chronic bilateral lower abdominal pain Disposition: HOME, SELF-CARE Condition: Stable Departure-Patient Inst. Referrals: SELF,ANGEL WARREN (PCP/Family) Primary Care Physician Add. Discharge Instructions: Please follow up very closely with your primary care physician in the next 1-2 days for a reevaluation of your symptoms and a discussion of next steps in care. Please also call to make an appointment with your adjunct business instructor to be seen within the next 1 week in follow-up of your ongoing abdominal discomfort. Return to the emergency department right away with worsening symptoms of any kind or with any other new symptoms of concern. KAREN SHAW MD Apr 15, 2020 17:03
[2020-04-15 17:10] VITALS: BP 136/78
== END 2020-04-15 17:11 | disposition home or self-care (01) ==
LOC: EDUNIT# 14:31 → ER FS 14:33
DX: G89.29 Other chronic pain (principal); R10.31 Right lower quadrant pain; R10.32 Left lower quadrant pain; Z88.0 Allergy status to penicillin; Z88.2 Allergy status to sulfonamides; Z87.891 Personal history of nicotine dependence; Z96.643 Presence of artificial hip joint, bilateral; Z85.3 Personal history of malignant neoplasm of breast
CPT/HCPCS: 36415; 74177; 80053; 81000; 83605; 83690; 84484; 85025; 93005

== ENCOUNTER → 2020-08-08 | Outpatient (CLI) | payer MEDICARE, OTHER ==
[~2020-08-08] MED LIST changes: -ALEN70TA5; +ALEN70TA69
[2020-08-08 14:24] LABS: BASOPHILS # (AUTO) 0.1 10^3/uL (0.0-0.1); BASOPHILS % (AUTO) 1 % (0-10); EOSINOPHILS # (AUTO) 0.1 10^3/uL (0.0-0.3); EOSINOPHILS % (AUTO) 1 % (0-10); HEMATOCRIT 42 % (35-52); HEMOGLOBIN 13.5 g/dL (11.5-16.0); LYMPHOCYTES # (AUTO) 1.6 10^3/uL (1.0-4.0); LYMPHOCYTES % (AUTO) 19 % (12-44); MEAN CORPUSCULAR HEMOGLOBIN 32 pg (25-34); MEAN CORPUSCULAR HGB CONC 33 g/dL (32-36); MEAN CORPUSCULAR VOLUME 98 fL (80-99); MONOCYTES # (AUTO) 0.4 10^3/uL (0.0-1.0); MONOCYTES % (AUTO) 5 % (0-12); NEUTROPHILS # (AUTO) 6.6 10^3/uL (1.8-7.8); NEUTROPHILS % (AUTO) 75 % (42-75); PLATELET COUNT 232 10^3/uL (130-400); WHITE BLOOD COUNT 8.8 10^3/uL (4.3-11.0)
[2020-08-08 14:49] LABS: ALANINE AMINOTRANSFERASE 16 U/L (0-55); ALBUMIN 3.9 GM/DL (3.2-4.5); ALKALINE PHOSPHATASE 68 U/L (40-136); BILIRUBIN,TOTAL 0.4 MG/DL (0.1-1.0); BUN/CREATININE RATIO 19; CALCIUM 8.8 MG/DL (8.5-10.1); CARBON DIOXIDE 26 MMOL/L (21-32); CHLORIDE 105 MMOL/L (98-107); CREATININE SERUM 0.83 MG/DL (0.60-1.30); GFR ESTIMATED > 60; GLUCOSE 112 MG/DL (70-105); POTASSIUM 3.8 MMOL/L (3.6-5.0); SODIUM 141 MMOL/L (135-145); TOTAL PROTEIN 6.2 GM/DL (6.4-8.2)
== END ==
LOC: ONC 14:05
PROVIDERS: ATTEND Internal Medicine Hematology & Oncology
DX: C50.912 Malignant neoplasm of unspecified site of left female breast (principal); M81.0 Age-related osteoporosis without current pathological fracture
CPT/HCPCS: 80053; 85025; G0463; 99213